=== PATIENT | female | born 1955 | race Caucasian/White ===

== ENCOUNTER 2021-06-24 09:18 | Emergency (ER) | payer OTHER ==
[~2021-06-24] VITALS: Ht 167.6 cm; Wt 89.8 kg
[2021-06-24 09:26] VITALS: BP 129/77
--- NOTE | 2021-06-24 09:31 | NUR ---
PT AMBULATED TO BED 04 ASSISTED BY WALKER.
--- NOTE | 2021-06-24 09:31 | NUR ---
PT AMBULATED TO BED, WITH FORWARD WHEEL WALKER. STEADY GAIT
--- NOTE | 2021-06-24 09:35 | NUR ---
Dr. Razo at bedside evaluating patient.
--- NOTE | 2021-06-24 09:40 | NUR ---
66 y/o female, pt states fell 2 weeks ago and is c/o left sided head paid, with pressure behind left eye. aa&ox4, ambulates with walker with even and steady gait. denies loc, syncope, n/v/d. equal strengths in bilateral upper and lower extremities. pt states 8/10 pressure pain. pmh: chronic body pain, hepatitis c nka
[2021-06-24] MEDS ORDERED: DIPH25SG5 PO (09:53)
[2021-06-24 10:13] VITALS: BP 129/77
--- NOTE | 2021-06-24 10:14 | NUR ---
Patient discharged with v/s stable. Written and verbal after care instructions given. Patient alert, oriented and verbalized understanding of instructions. Ambulatory with steady gait. All questions addressed prior to discharge. ID band removed. Patient advised to follow up with PMD. Rx of Benadryl given. Opportunity to ask questions provided and answered.
== END 2021-06-24 10:14 | disposition home or self-care (01) ==
LOC: MED 09:18
DX: S09.90XA Unspecified injury of head, initial encounter (principal); J30.2 Other seasonal allergic rhinitis; K12.1 Other forms of stomatitis; F17.210 Nicotine dependence, cigarettes, uncomplicated; Z86.19 Personal history of other infectious and parasitic diseases; Z71.6 Tobacco abuse counseling; W19.XXXA Unspecified fall, initial encounter; Y93.89 Activity, other specified; Y92.89 Other specified places as the place of occurrence of the external cause; Y99.8 Other external cause status
CPT/HCPCS: 99282

== ENCOUNTER 2021-08-25 10:59 | Emergency (ER) | payer OTHER ==
[~2021-08-25] VITALS: Ht 167.6 cm; Wt 77.1 kg
[~2021-08-25 10:59] MED LIST: DIPH25SG5 PO
[2021-08-25 11:12] VITALS: BP 117/69
--- NOTE | 2021-08-25 11:20 | NUR ---
PT W/C ASSISTED TO BED 01.
--- NOTE | 2021-08-25 11:38 | NUR ---
PT LAC IRRIGATED AND CLEANED WITH WARM WATER.
--- NOTE | 2021-08-25 11:44 | NUR ---
66 Y/O FEMALE C/O LACERATION WOUND TO BACK OF HEAD S/P FALL X 1 HOUR AGO. PT STATES 12/08 HEADACHE DESCRIBES ACHING NON-RADIATING. DENIES LOC. NO ACTIVE BLEEDING AT THIS TIME. DENIES FEVER/CHILLS. DENIES N/V/D. DENIES PMH NKA
--- NOTE | 2021-08-25 12:52 | NUR ---
PT BACK FROM CT
[2021-08-25] MEDS ORDERED: IBUP-2213 PO (13:25)
[2021-08-25] MEDS ORDERED: KETOROLAC 60 MG/2 ML VIAL IM ONE (13:25)
[2021-08-25 13:46] VITALS: BP 117/70
--- NOTE | 2021-08-25 13:47 | NUR ---
Patient discharged with v/s stable. Written and verbal after care instructions given FOR HEAD INJURY AND ABRASION and explained. Patient alert, oriented and verbalized understanding of instructions. Ambulatory with steady gait. All questions addressed prior to discharge. ID band removed. Patient advised to follow up with PMD. Rx of IBUPROFEN given. Patient educated on indication of medication including possible reaction and side effects. Opportunity to ask questions provided and answered.
== END 2021-08-25 13:47 | disposition home or self-care (01) ==
LOC: MED 10:59
DX: S00.01XA Abrasion of scalp, initial encounter (principal); Z90.49 Acquired absence of other specified parts of digestive tract; Z98.890 Other specified postprocedural states; Z79.1 Long term (current) use of non-steroidal anti-inflammatories (NSAID); Z79.899 Other long term (current) drug therapy; W01.198A Fall on same level from slipping, tripping and stumbling with subsequent striking against other object, initial encounter; Y92.89 Other specified places as the place of occurrence of the external cause; Y93.89 Activity, other specified; Y99.8 Other external cause status
CPT/HCPCS: 70450; 96372; 99284; J1885

== ENCOUNTER 2021-09-17 16:56 | Emergency (ER) | payer OTHER ==
[~2021-09-17] VITALS: Ht 167.6 cm; Wt 68.5 kg
[~2021-09-17 16:56] MED LIST changes: +IBUP-2213 PO
[2021-09-17 17:46] VITALS: BP 155/80
--- NOTE | 2021-09-17 19:36 | NUR ---
PT TAKEN TO RADIOLOGY
[2021-09-17 20:23] LABS: BASOPHILS % (AUTO) 0.5 % (0.0-2.0); EOSINOPHILS # (AUTO) 0.1 K/uL (0-0.4); EOSINOPHILS % (AUTO) 1.2 % (0.0-4.0); HEMATOCRIT 41.8 % (36-48); HEMOGLOBIN 13.9 g/dL (12.0-16.0); LYMPHOCYTES # (AUTO) 1.5 K/uL (2.5-16.5); LYMPHOCYTES % (AUTO) 23.6 % (20.5-51.1); MEAN CORPUSCULAR HEMOGLOBIN 27 pg (27-31); MEAN CORPUSCULAR HGB CONC 33 g/dL (33-37); MEAN CORPUSCULAR VOLUME 80.1 fL (80-94); MONOCYTES # (AUTO) 0.5 K/uL (0.8-1.0); MONOCYTES % (AUTO) 8.5 % (1.7-9.3); NEUTROPHILS # (AUTO) 4.1 K/uL (1.8-7.7); NEUTROPHILS % (AUTO) 66.2 % (42.2-75.2); PLATELET COUNT (AUTO) 161 K/uL (140-450); RED BLOOD CELL COUNT(AUTO) 5.22 MIL/uL (4.20-5.40); RED CELL DISTRIBUTION WIDTH 12.2 % (11.6-13.7); WHITE BLOOD COUNT (AUTO) 6.3 K/uL (4.8-10.8)
[2021-09-17] MEDS ORDERED: OMEP20EC11 PO (20:39)
--- NOTE | 2021-09-17 20:39 | NUR ---
PT TAKEN TO BED 2
--- NOTE | 2021-09-17 21:00 | NUR ---
66 Y/O C/O OF BURNING EPIGASTRIC PAIN X2 WEEKS DENIES ANY N/V/D. SKININTACT, A&OX4, NO SOB NOR CHEST PAIN, WALKS WITH A WALKER, AND DENIES PAIN. NKA PMH: OSTEOARTHRITIS, HYPOTHYROIDISM, HEP C, SEIZURES RX: GABAPENTIN
[2021-09-17 21:14] LABS: ALBUMIN 4.8 g/dL (3.4-5.0); ANION GAP 14.2 (8-16); ASPARTATE AMINOTRANSFERASE 24 U/L (15-37); CARBON DIOXIDE 29.3 mmol/L (21-32); CHLORIDE 96 mmol/L (98-107); CREATININE 0.7 mg/dL (0.6-1.3); GFR ARICAN-AMERICAN 107 mL/min (>90); GLUCOSE 82 mg/dL (74-106); LIPASE 121 U/L (73-393); POTASSIUM 4.5 mmol/L (3.5-5.1); SODIUM SERUM 135 mmol/L (136-145); TOTAL BILIRUBIN 0.5 mg/dL (0.0-1.0); UREA NITROGEN, BLOOD 15 mg/dL (7-18)
[2021-09-17 21:50] VITALS: BP 155/80
--- NOTE | 2021-09-17 22:01 | NUR ---
Patient discharged with v/s stable. Written and verbal after care instructions given and explained. Patient alert, oriented and verbalized understanding of instructions. Ambulatory with steady gait. All questions addressed prior to discharge. ID band removed. Patient advised to follow up with PMD. Rx of PRILOSEC given. Patient educated on indication of medication including possible reaction and side effects. Opportunity to ask questions provided and answered.
== END 2021-09-17 22:01 | disposition home or self-care (01) ==
LOC: MED 16:56
DX: R07.89 Other chest pain (principal); R03.0 Elevated blood-pressure reading, without diagnosis of hypertension; M19.90 Unspecified osteoarthritis, unspecified site; F17.210 Nicotine dependence, cigarettes, uncomplicated; Z79.899 Other long term (current) drug therapy; Z79.1 Long term (current) use of non-steroidal anti-inflammatories (NSAID)
CPT/HCPCS: 36415; 71045; 80053; 83690; 84484; 85025; 93005; 99285

== ENCOUNTER 2022-04-04 12:41 | Emergency (ER) | payer OTHER ==
[~2022-04-04] VITALS: Ht 154.9 cm; Wt 63.5 kg
[~2022-04-04 12:41] MED LIST changes: +OMEP20EC11 PO
[2022-04-04 12:47] VITALS: BP 125/66
--- NOTE | 2022-04-04 13:01 | NUR ---
NAVEED Benavidez evaluating pt.
[2022-04-04] MEDS ORDERED: PIPERACILLIN/TAZOBACTAM 3.375 GM in DEXTROSE 5% 50 ML IV ONE (13:25)
--- NOTE | 2022-04-04 13:27 | NUR ---
PT AMBULATED TO BED 6 WITH WALKER
--- NOTE | 2022-04-04 13:30 | NUR ---
66/f walked in c/o left leg wound and pain onset 1.5 months. pt reports wound onset after falling and scraping on a rug. pt states taking amoxicillin px with no relief. aao4, ambulatory, vitals stable. pmh: scoliosis
[2022-04-04 14:08] LABS: BASOPHILS % (AUTO) 0.5 % (0.0-2.0); EOSINOPHILS # (AUTO) 0.1 K/uL (0-0.4); EOSINOPHILS % (AUTO) 1.5 % (0.0-4.0); HEMATOCRIT 36.6 % (36-48); HEMOGLOBIN 12.4 g/dL (12.0-16.0); LYMPHOCYTES # (AUTO) 1.2 K/uL (2.5-16.5); LYMPHOCYTES % (AUTO) 16.6 % (20.5-51.1); MEAN CORPUSCULAR HEMOGLOBIN 28 pg (27-31); MEAN CORPUSCULAR HGB CONC 34 g/dL (33-37); MEAN CORPUSCULAR VOLUME 82.5 fL (80-94); MONOCYTES # (AUTO) 0.5 K/uL (0.8-1.0); MONOCYTES % (AUTO) 7.5 % (1.7-9.3); NEUTROPHILS # (AUTO) 5.3 K/uL (1.8-7.7); NEUTROPHILS % (AUTO) 73.9 % (42.2-75.2); PLATELET COUNT (AUTO) 165 K/uL (140-450); RED BLOOD CELL COUNT(AUTO) 4.43 MIL/uL (4.20-5.40); RED CELL DISTRIBUTION WIDTH 12.8 % (11.6-13.7); WHITE BLOOD COUNT (AUTO) 7.1 K/uL (4.8-10.8)
--- NOTE | 2022-04-04 14:14 | NUR ---
X-Ray at bedside.
[2022-04-04] MEDS ORDERED: PIPERACILLIN/TAZOBACTAM 3.375 GM VIAL IV ONE (14:29)
--- NOTE | 2022-04-04 14:31 | NUR ---
Ultrasound at bedside.
[2022-04-04 14:48] LABS: ALBUMIN 4.3 g/dL (3.4-5.0); ASPARTATE AMINOTRANSFERASE 34 U/L (15-37); CARBON DIOXIDE 31.9 mmol/L (21-32); CHLORIDE 101 mmol/L (98-107); CREATININE 0.7 mg/dL (0.6-1.3); GFR ARICAN-AMERICAN 107 mL/min (>90); GLUCOSE 79 mg/dL (74-106); POTASSIUM 3.9 mmol/L (3.5-5.1); SODIUM SERUM 140 mmol/L (136-145); UREA NITROGEN, BLOOD 15 mg/dL (7-18)
[2022-04-04 15:37] LABS: TOTAL BILIRUBIN 0.3 mg/dL (0.0-1.0)
--- NOTE | 2022-04-04 15:54 | NUR ---
66 y/o female bib self with c/o open area to left porter x 1 month. Patient is noted with redness, heat and discoloration to left porter. Patient is also noted with an open area to right porter. Per patient, the open area on left porter is also draining yellow liquid. Per patient, she has been cleaning the wound with hydrogen peroxide. Medical History: Scoliosis, Drug Abuse (clean) NKDA
--- NOTE | 2022-04-04 16:43 | NUR ---
Patient does not wish to proceed with medical care recommended by NAVEED MCMAHON. Patient given information related to possible complications, up to and including , which could occur as a result of leaving hospital at this time. Patient verbalizes understanding of risks involved leaving against medical advice. Patient has signed AMA form. NAVEED MCMAHON AT BEDSIDE, WITNESSED PT SIGNATURE
--- NOTE | 2022-04-04 16:45 | NUR ---
IV removed, catheter intact and site benign. Applied folded 4x4 gauze and tape to stop bleeding.
[2022-04-04] MEDS ORDERED: SULF-59 PO (16:46)
[2022-04-04] MEDS ORDERED: CEPH-588 PO (16:46)
[2022-04-04 17:52] LABS: BARBITURATE, URINE NEGATIVE ng/ml (NEG <=200); BENZODIAZEPINE, URINE NEGATIVE ng/mL (NEG <=200); CANNABINOID, URINE NEGATIVE ng/mL (NEG <=50); COCAINE, URINE NEGATIVE ng/mL (NEG <=300); OPIATE, URINE POSITIVE ng/mL (NEG <=2000); PHENCYCLIDINE SCREEN,URINE NEGATIVE ng/mL (NEG <=25)
== END 2022-04-04 16:43 | disposition left against medical advice (07) ==
LOC: MED 12:41
DX: L03.116 Cellulitis of left lower limb (principal); Z20.822 Contact with and (suspected) exposure to COVID-19
CPT/HCPCS: 36415; 73590; 80053; 80305; 83605; 84484; 85025; 85651; 86140; 87040; 87426; 93005; 93971; 96365; 99285; J2543; Q0092

== ENCOUNTER 2022-07-26 15:18 | Inpatient (IN) | payer OTHER ==
[~2022-07-26] VITALS: Ht 167.6 cm; Wt 65.8 kg
[~2022-07-26 15:18] MED LIST changes: +CEPH-588 PO; +SULF-59 PO
--- NOTE | 2022-07-26 15:20 | NUR ---
PATIENT BIBA TO BED 4.
[2022-07-26 15:26] VITALS: BP 137/88
--- NOTE | 2022-07-26 15:54 | NUR ---
Patient arrived to ED 4 for c/o circulation problem bilateral legs. Patient said 10/10 pain on bilateral legs. Burning hurting biting pain. Patient PMH hepatitis C, cancer. Bilateral legs noted to have some dicharge that happened a few months ago. at bedside to MSE patient. Will continue to monitor.
[2022-07-26] MEDS ORDERED: cefTRIAXone 1,000 MG in DEXT 5% MINI-BAG PLUS 50 ML IV ONE (16:35)
[2022-07-26] MEDS ORDERED: MORPHINE SULFATE 4 MG/ML SYR IVP ONE (16:35)
[2022-07-26] MEDS ORDERED: ONDANSETRON 4 MG/2 ML VIAL IVP ONE (16:35)
[2022-07-26] MEDS ORDERED: NACL 0.9% 1,000 ML IV SCH (16:35)
[2022-07-26] MEDS ORDERED: cefTRIAXone 1,000 MG VIAL ONE (16:45)
[2022-07-26 16:47] LABS: BASOPHILS % (AUTO) 0.3 % (0.0-2.0); EOSINOPHILS # (AUTO) 0.1 K/uL (0-0.4); EOSINOPHILS % (AUTO) 0.6 % (0.0-4.0); HEMATOCRIT 35.5 % (36-48); HEMOGLOBIN 11.8 g/dL (12.0-16.0); LYMPHOCYTES # (AUTO) 1.4 K/uL (2.5-16.5); LYMPHOCYTES % (AUTO) 12.8 % (20.5-51.1); MEAN CORPUSCULAR HEMOGLOBIN 26 pg (27-31); MEAN CORPUSCULAR HGB CONC 33 g/dL (33-37); MEAN CORPUSCULAR VOLUME 76.5 fL (80-94); MONOCYTES % (AUTO) 9.3 % (1.7-9.3); NEUTROPHILS # (AUTO) 8.1 K/uL (1.8-7.7); PLATELET COUNT (AUTO) 420 K/uL (140-450); RED BLOOD CELL COUNT(AUTO) 4.65 MIL/uL (4.20-5.40); RED CELL DISTRIBUTION WIDTH 14.5 % (11.6-13.7); WHITE BLOOD COUNT (AUTO) 10.6 K/uL (4.8-10.8)
[2022-07-26 17:13] LABS: ALBUMIN 2.3 g/dL (3.4-5.0); ANION GAP 10.8 (8-16); ASPARTATE AMINOTRANSFERASE 42 U/L (15-37); CARBON DIOXIDE 29.9 mmol/L (21-32); CHLORIDE 96 mmol/L (98-107); CREATININE 0.5 mg/dL (0.6-1.3); GFR ARICAN-AMERICAN 158 mL/min (>90); GLUCOSE 94 mg/dL (74-106); POTASSIUM 3.7 mmol/L (3.5-5.1); SODIUM SERUM 133 mmol/L (136-145); TOTAL BILIRUBIN 0.4 mg/dL (0.0-1.0); UREA NITROGEN, BLOOD 10 mg/dL (7-18)
[2022-07-26] MEDS ORDERED: ONDANSETRON 4 MG/2 ML VIAL IVP PRN (18:40)
[2022-07-26] MEDS ORDERED: POTASSIUM CHLORIDE 10 MEQ TABER PO PRN (18:40)
[2022-07-26] MEDS ORDERED: MAG SULF 2000 MG/WATER PREMIX 50 ML IV PRN (18:40)
[2022-07-26] MEDS ORDERED: ZOLPIDEM 10 MG TAB PO PRN (18:40)
[2022-07-26] MEDS ORDERED: DOCUSATE SODIUM 100 MG GELCAP PO PRN (18:40)
[2022-07-26] MEDS ORDERED: ACETAMINOPHEN 325 MG TAB PO PRN (18:40)
[2022-07-26] MEDS: LORazepam 2 MG/ML VIAL IVP PRN (18:59)
--- NOTE | 2022-07-26 19:33 | NUR ---
REPORT FR BRITTANY DUENAS
--- NOTE | 2022-07-26 19:34 | NUR ---
Report given to shift supervisor melting RN for continuity of care. Patient in stable condition.
--- NOTE | 2022-07-26 20:03 | NUR ---
REPORT FR BRITTANY, PT C/O PAIN OHRR WOUNDS ON BOTH LOWER EXTREMITIES
[2022-07-26] MEDS: MORPHINE SULFATE 2 MG/ML SYR IVP PRN (20:42)
--- NOTE | 2022-07-26 20:44 | NUR ---
C/O WOUND TO BLE ,PAIN MEDS GIVEN ORDERED
--- NOTE | 2022-07-26 20:57 | NUR ---
NON ADHERANT DRESSING APPLIED TO WOUND ON BOTH LE
--- NOTE | 2022-07-26 22:01 | NUR ---
PLACED DRESSING ON LOWER LEGS.
--- NOTE | 2022-07-26 22:08 | NUR ---
PAIN MEDS GIVEN EFFECTIVE, REPORT GIVEN LESIA CALIX RN
--- NOTE | 2022-07-26 22:27 | NUR ---
Patient will be admitted to care of [facility]. Admited to . Will go to [id number]. Belongings list completed. Report toYOGI DUENAS .
--- NOTE | 2022-07-26 22:40 | NUR ---
ADMITTED PATIENT FROM ER VIA [facility] AWAKE ALERT ORIENTED X4. CC: NON HEALING WOUND TO BILATERAL LOWER EXTREMITIES AND LEG PAIN. NO SOB NOTED. NO COMPLAINTS OF PAIN AT THIS TIME. IV ACCESS TO THE RIGHT HAND 20 GAUGE SALINE LOCK. ALL SAFETY PRECAUTIONS ARE IN PLACE. CALL LIGHT WITHIN REACH. MRSA SCREENING DONE.
[2022-07-26 23:00] VITALS: BP 124/68
[2022-07-27 04:00] VITALS: BP 130/69
[2022-07-27] MEDS: MORPHINE SULFATE 2 MG/ML SYR IVP PRN ×2 (04:49→10:42)
--- NOTE | 2022-07-27 07:17 | NUR ---
GAVE REPORT TO DAY NURSE FOR CONTINUITY OF CARE.
--- NOTE | 2022-07-27 07:18 | NUR ---
RECEIVED PATIENT FROM PM NURSE FOR CONTINUATION OF CARE. PATIENT SEEN ON BED ASLEEP WITH NORMAL RISE AND FALL OF CHEST. PATIENT CARE PLAN REVIEWED AND PATIENT CARE RESUMED.
[2022-07-27 07:24] LABS: BASOPHILS % (AUTO) 0.3 % (0.0-2.0); EOSINOPHILS # (AUTO) 0.1 K/uL (0-0.4); EOSINOPHILS % (AUTO) 0.5 % (0.0-4.0); HEMATOCRIT 31.9 % (36-48); HEMOGLOBIN 10.6 g/dL (12.0-16.0); LYMPHOCYTES # (AUTO) 0.9 K/uL (2.5-16.5); LYMPHOCYTES % (AUTO) 8.2 % (20.5-51.1); MEAN CORPUSCULAR HEMOGLOBIN 25 pg (27-31); MEAN CORPUSCULAR HGB CONC 33 g/dL (33-37); MEAN CORPUSCULAR VOLUME 75.6 fL (80-94); MONOCYTES # (AUTO) 1.1 K/uL (0.8-1.0); NEUTROPHILS # (AUTO) 8.6 K/uL (1.8-7.7); PLATELET COUNT (AUTO) 315 K/uL (140-450); RED BLOOD CELL COUNT(AUTO) 4.21 MIL/uL (4.20-5.40); RED CELL DISTRIBUTION WIDTH 14.4 % (11.6-13.7); WHITE BLOOD COUNT (AUTO) 10.6 K/uL (4.8-10.8)
[2022-07-27 07:43] LABS: CREATININE 0.5 mg/dL (0.6-1.3); POTASSIUM 3.8 mmol/L (3.5-5.1)
[2022-07-27 07:48] LABS: ANION GAP 10.1 (8-16); CARBON DIOXIDE 28.7 mmol/L (21-32)
[2022-07-27] MEDS ORDERED: METHADONE 10 MG TAB PO SCH (11:15)
[2022-07-27] MEDS ORDERED: IBUPROFEN 600 MG TAB PO PRN (11:15)
[2022-07-27] MEDS ORDERED: VANCOMYCIN PER PHARMACY MC PRN (11:25)
[2022-07-27] MEDS ORDERED: VANCOMYCIN 750 MG in DEXTROSE 5% 250 ML IV SCH (12:00)
[2022-07-27] MEDS: CEFEPIME 2,000 MG in DEXTROSE 5% 100 ML IV SCH ×2 (13:00→21:43)
[2022-07-27] MEDS ORDERED: METHADONE HCL ORAL SOLN 10 MG/ML SOLN PO SCH (13:00)
--- NOTE | 2022-07-27 18:00 | NUR ---
WOUND DRESSING PERFORMED ON PATIENT
--- NOTE | 2022-07-27 19:20 | NUR ---
GAVE REPORT TO PM NURSE FOR CONTINUATION OF CARE
[2022-07-27 20:00] VITALS: BP 106/61
[2022-07-27] MEDS ORDERED: DEXTROSE 5% IV SCH (20:00)
[2022-07-27] MEDS ORDERED: VANCOMYCIN IV SCH (20:00)
--- NOTE | 2022-07-27 20:00 | NUR ---
PATIENT IV SITE LEAKING. INSERTED A NEW IV LINE TO RIGHT FOREARM WITH GOOD RETURN OF BLOOD. TOLERATED WELL.
[2022-07-27] MEDS: QUEtiapine FUMARATE 100 MG TAB PO SCH (21:01)
--- NOTE | 2022-07-27 21:43 | NUR ---
MAXIPIME IVPB ADMINISTERED ORDERED.
[2022-07-28 04:00] VITALS: BP 108/62
[2022-07-28 07:02] LABS: BASOPHILS % (AUTO) 0.3 % (0.0-2.0); EOSINOPHILS # (AUTO) 0.1 K/uL (0-0.4); EOSINOPHILS % (AUTO) 1.7 % (0.0-4.0); HEMATOCRIT 29.8 % (36-48); HEMOGLOBIN 9.9 g/dL (12.0-16.0); LYMPHOCYTES % (AUTO) 16.6 % (20.5-51.1); MEAN CORPUSCULAR HEMOGLOBIN 25 pg (27-31); MEAN CORPUSCULAR HGB CONC 33 g/dL (33-37); MEAN CORPUSCULAR VOLUME 76.4 fL (80-94); MONOCYTES # (AUTO) 0.8 K/uL (0.8-1.0); NEUTROPHILS # (AUTO) 4.3 K/uL (1.8-7.7); NEUTROPHILS % (AUTO) 69.4 % (42.2-75.2); PLATELET COUNT (AUTO) 256 K/uL (140-450); RED BLOOD CELL COUNT(AUTO) 3.91 MIL/uL (4.20-5.40); RED CELL DISTRIBUTION WIDTH 14.7 % (11.6-13.7); WHITE BLOOD COUNT (AUTO) 6.3 K/uL (4.8-10.8)
[2022-07-28 07:10] LABS: ANION GAP 8.5 (8-16); CREATININE 0.6 mg/dL (0.6-1.3); POTASSIUM 3.5 mmol/L (3.5-5.1)
[2022-07-28] MEDS: LEVOTHYROXINE 0.088 MG TAB PO SCH (07:10)
--- NOTE | 2022-07-28 07:22 | NUR ---
RECEIVED REPORT FROM PM NURSE FOR CONTINUATION OF CARE. PATIENT SEEN ON BED ASLEEP WITH NORMAL RISE AND FALL OF CHEST.
--- NOTE | 2022-07-28 07:31 | NUR ---
GAVE REPORT TO AM NURSE FOR CONTINUITY OF CARE.
--- NOTE | 2022-07-28 08:02 | NUR ---
PATIENT HAS BEEN SCREENED AND CATEGORIZED HIGH NUTRITION RISK. PATIENT WILL BE SEEN WITHIN 1-2 DAYS OF ADMISSION. 07/26/22-07/28/[address] REFERRAL RECEIVED FOR WOUNDS/PRESSURE INJURY
[2022-07-28] MEDS ORDERED: NON-FORMULARY ITEM (Omeprazole* (Prilosec*) 20 MG) PO SCH (09:00)
[2022-07-28] MEDS: CEFEPIME 2,000 MG in DEXTROSE 5% 100 ML IV SCH ×2 (09:58→20:16)
[2022-07-28] MEDS: PANTOPRAZOLE 40 MG TABEC PO SCH (09:59)
[2022-07-28] MEDS: QUEtiapine FUMARATE 100 MG TAB PO SCH ×2 (09:59→20:16)
[2022-07-28] MEDS: ESCITALOPRAM 20 MG TAB PO SCH (10:00)
[2022-07-28] MEDS: ASPIRIN 81 MG TAB.CHEW PO SCH (10:01)
[2022-07-28] MEDS ORDERED: METHADONE HCL ORAL SOLN 10 MG/ML SOLN PO SCH (13:00)
[2022-07-28] MEDS: VANCOMYCIN HCL 750 MG in DEXTROSE 5% 250 ML IV SCH (14:00)
[2022-07-28] MEDS: MORPHINE SULFATE 2 MG/ML SYR IVP PRN (17:50)
--- NOTE | 2022-07-28 17:50 | NUR ---
ASSESSED WOUND DRESSING. DRESSING STILL INTACT AND CLEAN OF PUS. PATIENT COMPLAINS OF PAIN /. MORPHINE GIVEN AND WILL EVALUATE AFTER 1 HOUR.
--- NOTE | 2022-07-28 18:41 | NUR ---
07/28/22 RD INITIAL ASSESSMENT COMPLETED. PLEASE REFER TO NUTRITION ASSESSMENT UNDER CARE ACTIVITY FOR ESTIMATED NUTRITIONAL NEEDS. 1. CONTINUE REGULAR DIET TOLERATED 2. RECOMMEND ENSURE & MARY BID TO PROMOTE WOUND HEALING PER RD PROTOCOL 3. RD TO FOLLOW-UP 3-5 DAYS, MODERATE RISK MARIAA CRONIN RD
--- NOTE | 2022-07-28 18:50 | NUR ---
PATIENT FREE OF PAIN. SEEN ON BED EATING DINNER. PATIENT REPOSITIONED. VERBALIZED CLOSING REMARKS WITH PATIENT.
--- NOTE | 2022-07-28 19:10 | NUR ---
NURSE REPORT REPORT OBTAINED FROM DAY SHIFT NURSE SORAYA AND HIS NURSE ASSUME CARE. VSS. AFEB. NO C/O PAIN OR DISCOMFORT. ISABEL WOODS RN
[2022-07-28 20:00] VITALS: BP 108/67
--- NOTE | 2022-07-29 | NUR ---
NURSE NOTES ASLEEP WITHOUT ANY SXS OF PAIN OR DISTRESS. ISABEL WOODS RN
[2022-07-29 04:00] VITALS: BP 117/70
--- NOTE | 2022-07-29 04:00 | NUR ---
NURSE NOTES VSS. AFEB. NO C/O PAIN OR DISCOMFORT.
[2022-07-29] MEDS: LEVOTHYROXINE 0.088 MG TAB PO SCH (06:31)
--- NOTE | 2022-07-29 07:29 | NUR ---
NURSE REPORT REPORT GIVEN TO DAYSHIFT NURSE KIM TO ASSUME CARE OF PATIENT. ALL QUESTIONS ANSWERED. ISABEL WOODS RN
[2022-07-29 07:46] LABS: BASOPHILS % (AUTO) 0.4 % (0.0-2.0); EOSINOPHILS # (AUTO) 0.1 K/uL (0-0.4); EOSINOPHILS % (AUTO) 1.2 % (0.0-4.0); HEMATOCRIT 30.2 % (36-48); LYMPHOCYTES # (AUTO) 0.9 K/uL (2.5-16.5); LYMPHOCYTES % (AUTO) 15.7 % (20.5-51.1); MEAN CORPUSCULAR HEMOGLOBIN 25 pg (27-31); MEAN CORPUSCULAR HGB CONC 33 g/dL (33-37); MEAN CORPUSCULAR VOLUME 76.2 fL (80-94); MONOCYTES # (AUTO) 0.6 K/uL (0.8-1.0); MONOCYTES % (AUTO) 9.8 % (1.7-9.3); NEUTROPHILS # (AUTO) 4.2 K/uL (1.8-7.7); NEUTROPHILS % (AUTO) 72.9 % (42.2-75.2); PLATELET COUNT (AUTO) 262 K/uL (140-450); RED BLOOD CELL COUNT(AUTO) 3.96 MIL/uL (4.20-5.40); RED CELL DISTRIBUTION WIDTH 14.6 % (11.6-13.7); WHITE BLOOD COUNT (AUTO) 5.8 K/uL (4.8-10.8)
[2022-07-29 07:56] LABS: ANION GAP 9.3 (8-16); CARBON DIOXIDE 30.9 mmol/L (21-32); CREATININE 0.7 mg/dL (0.6-1.3); POTASSIUM 4.2 mmol/L (3.5-5.1)
[2022-07-29 08:00] VITALS: BP 132/68
[2022-07-29] MEDS: ASPIRIN 81 MG TAB.CHEW PO SCH (08:19)
[2022-07-29] MEDS: PANTOPRAZOLE 40 MG TABEC PO SCH (08:19)
[2022-07-29] MEDS: ESCITALOPRAM 20 MG TAB PO SCH (08:20)
[2022-07-29] MEDS: QUEtiapine FUMARATE 100 MG TAB PO SCH (08:20)
[2022-07-29] MEDS: VANCOMYCIN HCL 750 MG in DEXTROSE 5% 250 ML IV SCH (08:21)
[2022-07-29] MEDS ORDERED: QUET300T1 PO (09:02)
[2022-07-29] MEDS ORDERED: LEVO0.083 PO (09:02)
[2022-07-29] MEDS ORDERED: CEFEPIME IV (09:02)
[2022-07-29] MEDS ORDERED: LAM200 PO (09:02)
[2022-07-29] MEDS ORDERED: IV Vancomycin IV (09:04)
[2022-07-29] MEDS: MORPHINE SULFATE 2 MG/ML SYR IVP PRN ×2 (10:06→17:45)
--- NOTE | 2022-07-29 10:45 | NUR ---
WOUND CARE NOTE: PT. ADMITTED WITH BLE CHRONIC ULCERS. PT IS AAX4, PER PT. LAST SEEN FOR LEGS TX WAS AT [facility].PER PT. " THEY DID NOTHING". PER PT. SHE IS VERY SENSITIVE FOR PAIN. SPOKE TO PRIMARY HENRIQUE MARCUS AND MORPHINE WAS GIVEN PER ORDER. BLE OLD DRESSING SOAKED WITH 2 BOTTLES OF IRRIGATION NS. WHEN REMOVING OLD SOILING DRESSING, PT YELLIN OUT LOUD, YET ONLY OUTER LAYER DRESSING WAS ROLLED TO HALF WAY AND ABD PADS EXPOSED. ANOTHER BOTTLE OF NS, SOAKED THRU TO ABD PAD, WAIT FOR ANOTHER 10 MINUTES AND TO REMOVE LLE ABD PAD DRESSING,ANTERIOR WOUND SHOWN WITH SLOUGH TISSUE, FOUL ODOR, AT THIS TIME PT. REQUEST TO STOP AND DOES NOT WANT WOUND CARE NURSE TO CONTINUE. WOUND CARE NURSE STOP ALL CARE AT THIS TIME. WITH PT. PERMISSION LLE WOUND PHOTO OBTAINED SENT TO DR. TILLMAN AND REQUEST SURGEON CONSULT FOR DEBRIDEMENT. PT. AGREES WITH PLAN, HOWEVER, SHE WANTS IT RIGHT AWAY. EXPLAIN TO PT. THAT NEED TO WAIT FOR SURGEON TO COME TO VISIT AND WHILE WAITING THE WOUND DRESSING NEED TO BE CHANGED. PT. REFUSES WOUND CARE NURSE TO TOUCH HER AGAIN. IN THE MEANWHILE X-RAY STAFF COMING IN AND PT. ALLOW X-RAY TO BE TAKEN. BLE COVER WITH ABSORBANT PAD AT THIS TIME AND POC DISCUSSED WITH PRIMARY HENRIQUE MARCUS WITH ALL ABOVE INFORMATION DISCUSSED AND REQUEST PAIN MANAGEMENT AND TAKE OVER WOUND CARE TO BLE. ANGELINE VERBALIZES UNDERSTANDING. RECOMMENDATIONS: -SURGEON CONSULT BLE FOR DEBRIDEMENT -BETTER PAIN MANAGEMENT FOR WOUND DRESSING CHANGE -BLE SOAK THRU OLD DRESSING BEFORE REMOVING IT. CLEANSE BLE WITH NS, PAT DRY, APPLY SILVASORB GEL WITH OIL EMULSION DRESSING, COVER WITH ABD PADS, WRAP WITH KERLIX ROLLS AND SECURED WITH TAPE DAILY AND PRN
[2022-07-29] MEDS: CEFEPIME 2,000 MG in DEXTROSE 5% 100 ML IV SCH (10:58)
--- NOTE | 2022-07-29 11:02 | NUR ---
SPOKE TO DR. TILLMAN IN PERSON, PER DR. TILLMAN AWARE OF REQUEST SURGEON. PER DR. TILLMAN , NO DEBRIDEMENT HERE. PT. WILL BE DISCHARGE TO SNF AND HER INSURANCE CAN FOLLOW FROM THERE.. CHARGE NURSE BIA NOTIFIED
[2022-07-29] MEDS: LORazepam 2 MG/ML VIAL IVP PRN (12:40)
--- NOTE | 2022-07-29 12:50 | NUR ---
UPON ARRIVAL TO PT. ROOM. PT HAS REMOVES SOME OF DRESSING. POC DISCUSSED WITH PT. NO ORDER FOR SURGEON CONSULT, DOCTOR LAYNE PLACED ORDER FOR SNF DISCHARGED. AT THIS TIME PT. ALLOW WOUND CARE NURSE TO PROVIDE WOUND CARE. POC DISCUSSED WITH PRIMARY RN FOR PAIN MEDICATION. PER ANGELINE, NO PAIN MED DUE AND WILL OFFER ATIVAN. LLE 27X1X0.3CM RLE 95B50H8.3CM AREA IN CIRCUMFERENCE, BLE WOUNDS ANTERIOR TO POSTERIOR FROM KNEE DOWN TO CHON-ANKLE IRREGULAR SHAPE WOUNDS AREA WITH MULTIPLE ULCERS,50% SLOUGH TISSUE, 50% PINK TISSUE, FOUL ODOR, SMALL AMOUNT BLEEDING, CHON-WOUND SKIN MOIST, PAIN 7/10. WOUNDS CLEANSE WITH NS, PAT DRY, APPLY SILVASORB GEL WITH OIL EMULSION DRESSING,COVER WITH ABD PAD, WRAP WITH KERLIX ROLLS AND SECURED WITH TAPE DAILY AND PRN IF SOILING. Addendum: 07/29/22 at 1419 by Trevon Foley RN (Grace) EDIT: LLE 83Q17B8.3CM RLE [id number] AREA IN CIRCUMFERENCE
--- NOTE | 2022-07-29 12:51 | NUR ---
RECEIVED ORDER FOR PATIENT TO GO TO SNF FOR IV ABX AND PT. [place] [facility] LAURIE [facility]OR[facility]. PATIENT WAS ACCEPTED AT [facility] LOCATED AT [address] [id number]. PATIENT WILL BE GOING TO ROOM 11B UNDER DR ARANA. TRANSPORTATION SET UP WITH [facility] WITH A 1700 CHIEF RADIOLOGY TIME NURSE ANGELINE AND PATIENT AWARE OF THE ABOVE INFORMATION
[2022-07-29] MEDS ORDERED: METHADONE HCL ORAL SOLN 10 MG/ML SOLN PO SCH (13:00)
--- NOTE | 2022-07-29 13:12 | NUR ---
DC PLANNING ASSESSMENT COMPLETE PLEASE REFER TO ASSESSMENT FOR ADDITIONAL DETAILS PT CURRENTLY HAS A DC ORDER FOR SNF PLACEMENT FOR IV ANTIBIOTIC AND WOUND CARE. PT REPORTS SHE IS AGREEABLE TO SNF PLACEMENT. DCP/CM WORKING ON IDENTIFYING SNF PLACEMENT. Addendum: 07/29/22 at 1313 by Leatha CADENA Amended: Links added.
[2022-07-29 16:00] VITALS: BP 135/66
== END 2022-07-29 17:50 | DRG 871 ==
LOC: MED 15:18 → MMU 18:36 → MTU 21:18
PROVIDERS: ADMIT Family Medicine; ATTEND Family Medicine
DX: A41.9 Sepsis, unspecified organism (principal); E43 Unspecified severe protein-calorie malnutrition; L03.116 Cellulitis of left lower limb; E87.1 Hypo-osmolality and hyponatremia; L03.115 Cellulitis of right lower limb; B19.20 Unspecified viral hepatitis C without hepatic coma; Z20.822 Contact with and (suspected) exposure to COVID-19; F32.A Depression, unspecified; R56.9 Unspecified convulsions; E83.42 Hypomagnesemia; F41.9 Anxiety disorder, unspecified; R74.01 Elevation of levels of liver transaminase levels; Z90.49 Acquired absence of other specified parts of digestive tract; Z85.038 Personal history of other malignant neoplasm of large intestine; Z68.23 Body mass index [BMI] 23.0-23.9, adult
CPT/HCPCS: 36415; 71045; 73030; 80048; 80053; 80202; 82550; 83605; 83735; 84484; 85025; 87040; 87081; 93970; 96365; 96375; 97110; 97112; 97530; 99285; J0692; J0696; J2060; J2270; J2405; J3370; J3475; J7060; Q0092

== ENCOUNTER 2022-10-28 17:07 | Inpatient (IN) | payer OTHER ==
[~2022-10-28] VITALS: Ht 165.1 cm; Wt 57.6 kg
[~2022-10-28 17:07] MED LIST changes: +CEFEPIME IV; -CEPH-588 PO; +IV Vancomycin IV; +LAM200 PO; +LEVO0.083 PO; +QUET300T1 PO; -SULF-59 PO
[2022-10-28 17:19] VITALS: BP 117/66; PULSE 90; RESP 20; TEMP 99.2; O2SAT 95
[2022-10-28] MEDS ORDERED: VANCOMYCIN 1,000 MG in DEXTROSE 5% 250 ML IV ONE (18:30)
[2022-10-28] MEDS ORDERED: KETOROLAC 30 MG/ML VIAL IM ONE (18:30)
[2022-10-28] MEDS ORDERED: PIPERACILLIN/TAZOBACTAM 3.375 GM in DEXTROSE 5% 50 ML IV ONE (18:30)
--- NOTE | 2022-10-28 19:00 | NUR ---
67 Y/O F PATIENT PRESENTS TO ED WITH STATSIS ULCERS BILATERALY ON LOWER EXTREMITIES FOR THE LAST 8 MONTHS. PT STATES ONE DAY THE ULCERS POPPED UP . PER HOME HEALTH NURSE PT STATES SHE WAS WORRIED AND WANTED HER TO BE SEEN BY THE ER. DENIES N/V/D; SKIN IS PINK/WARM/DRY; AAOX4 WITH EVEN AND STEADY GAIT; LUNGS CLEAR BL; HR EVEN AND REGULAR; PT DENIES ANY FEVER, CP, SOB, OR COUGH AT THIS TIME; PATIENT STATES PAIN OF 10/10 AT THIS TIME; VSS; PATIENT POSITIONED FOR COMFORT; HOB ELEVATED; CALL LIGHT WITH IN REACH BEDRAILS UP X2; BED DOWN. ER MD MADE AWARE OF PT STATUS.
--- NOTE | 2022-10-28 19:10 | NUR ---
22 G IV PLACED, BLOOD WORK DONE, CHEST X RAY COMPLETED, PT PLACED ON PUERWICK, DIAPPER CHANGED.
[2022-10-28 19:17] LABS: BASOPHILS # (AUTO) 0.1 K/uL (0.00-0.22); BASOPHILS % (AUTO) 0.8 % (0.0-2.0); EOSINOPHILS # (AUTO) 0.1 K/uL (0-0.4); EOSINOPHILS % (AUTO) 0.7 % (0.0-4.0); HEMATOCRIT 33.5 % (36-48); HEMOGLOBIN 10.7 g/dL (12.0-16.0); LYMPHOCYTES # (AUTO) 1.2 K/uL (2.5-16.5); LYMPHOCYTES % (AUTO) 12.2 % (20.5-51.1); MEAN CORPUSCULAR HEMOGLOBIN 23 pg (27-31); MEAN CORPUSCULAR HGB CONC 32 g/dL (33-37); MEAN CORPUSCULAR VOLUME 72.5 fL (80-94); MONOCYTES # (AUTO) 0.8 K/uL (0.8-1.0); MONOCYTES % (AUTO) 8.5 % (1.7-9.3); NEUTROPHILS # (AUTO) 7.3 K/uL (1.8-7.7); NEUTROPHILS % (AUTO) 77.8 % (42.2-75.2); PLATELET COUNT (AUTO) 374 K/uL (140-450); RED BLOOD CELL COUNT(AUTO) 4.63 MIL/uL (4.20-5.40); RED CELL DISTRIBUTION WIDTH 16.9 % (11.6-13.7); WHITE BLOOD COUNT (AUTO) 9.4 K/uL (4.8-10.8)
[2022-10-28 19:29] VITALS: O2SAT 96
[2022-10-28] MEDS ORDERED: HYDR2TAB6 PO (19:30)
--- NOTE | 2022-10-28 19:30 | NUR ---
X RAY AT THE BEDSIDE
[2022-10-28 19:31] LABS: ALBUMIN 1.7 g/dL (3.4-5.0); ANION GAP 10.4 (8-16); CARBON DIOXIDE 29.6 mmol/L (21-32); CREATININE 0.6 mg/dL (0.6-1.3); TOTAL BILIRUBIN 0.3 mg/dL (0.0-1.0)
[2022-10-28] MEDS ORDERED: KETOROLAC 30 MG/ML VIAL ONE (19:35)
[2022-10-28] MEDS ORDERED: PIPERACILLIN/TAZOBACTAM 3.375 GM VIAL IV ONE (19:35)
[2022-10-28] MEDS ORDERED: VANCOMYCIN 1,000 MG VIAL ONE (19:35)
--- NOTE | 2022-10-28 19:42 | NUR ---
Note [email or web address] in EDM - 10/28/22 at 1943 by VANESSA Patient discharged with v/s stable. Written and verbal after care instructions given and explained. Patient alert, oriented and verbalized understanding of instructions. Ambulatory with steady gait. All questions addressed prior to discharge. ID band removed. Patient advised to follow up with PMD. Rx of given. Patient educated on indication of medication including possible reaction and side effects. Opportunity to ask questions provided and answered.
--- NOTE | 2022-10-28 19:43 | NUR ---
RELEASED CARE TO HENRIQUE PUENTES REPORT GIVEN AT 1930
[2022-10-28] MEDS ORDERED: MORPHINE SULFATE 4 MG/ML SYR IVP ONE (20:35)
[2022-10-28] MEDS ORDERED: NACL 0.9% 2,000 ML IV ONE (20:35)
[2022-10-28] MEDS ORDERED: POTASSIUM CHLORIDE 10 MEQ TABER PO ONE ×2 (20:55)
[2022-10-28] MEDS ORDERED: DOCUSATE SODIUM 100 MG GELCAP PO PRN (21:30)
[2022-10-28] MEDS ORDERED: ONDANSETRON 4 MG/2 ML VIAL IM/IVP PRN (21:30)
[2022-10-28] MEDS: NACL 0.9% 1,000 ML IV SCH (21:30)
[2022-10-28] MEDS ORDERED: ZOLPIDEM 5 MG TAB PO PRN (21:30)
[2022-10-28] MEDS ORDERED: ACETAMINOPHEN 325 MG TAB PO PRN (21:30)
[2022-10-28] MEDS ORDERED: POTASSIUM CHLORIDE 10 MEQ TABER PO PRN (21:30)
[2022-10-28] MEDS ORDERED: guaiFENesin DM 200/20 MG-10 ML 10 ML UDC PO PRN (21:30)
[2022-10-28] MEDS ORDERED: HYDROcodone/APAP 7.5/325 MG 1 TAB PO PRN (21:30)
[2022-10-28] MEDS ORDERED: ESCI5TAB PO (22:10)
[2022-10-28] MEDS ORDERED: VANCOMYCIN 500 MG in DEXTROSE 5% 100 ML IV ONE (22:50)
[2022-10-28] MEDS ORDERED: PANTOPRAZOLE 40 MG INJ VIAL IVP ONE (23:00)
--- NOTE | 2022-10-28 23:20 | NUR ---
Patient will be admitted to care of [facility]. Admited to [facility]. Will go to room 115. Belongings list completed. Report to edgar.
[2022-10-28 23:27] LABS: APPEARANCE,URINE CLEAR (CLEAR); BILIRUBIN,URINE NEGATIVE (NEGATIVE); BLOOD, URINE 3+ (NEGATIVE); COLOR,URINE YELLOW (YELLOW); LEUKOCYTE ESTERASE ,URINE 3+ (NEGATIVE); NITRITE, URINE POSITIVE (NEGATIVE); UGLUCOSE NEGATIVE (NEGATIVE)
[2022-10-28 23:35] LABS: CALCIUM OXALATE CRYSTALS,UR 0-10 /HPF (None Seen)
[2022-10-28 23:37] VITALS: BP 140/75; PULSE 88; RESP 18; TEMP 98.6; O2SAT 96; O2SAT 98
--- NOTE | 2022-10-28 23:37 | NUR ---
RECEIVED PT AAOX4 , FROM ER / [facility] , HAS OPEN WOUNDS ON THE BOTH LOWER LEGS , IV SITE INTACT AND PATENT , NOT IN ACUTE DISTRESS , RA - O2 SAT WNL . PT CAN ABLE TO TRANSFER TO BED BY SELF TURNING / MOVING BED FROM GURNEY TO BED , FALL RISK - PUT BED ALARM ON , FURTHER ADMISSION ASSESSMENT WILL BE DONE , REMINDS NPO EXCEPTS MEDS . ENSURE SAFETY , CALL LIGHT WITHIN REACH , WILL CONT. TO MONITOR .
[2022-10-29] MEDS ORDERED: VANCOMYCIN 500 MG VIAL ONE (00:19)
--- NOTE | 2022-10-29 01:00 | NUR ---
PT REFUSED WOUND ASSESSMENT , STILL REFUSING TO PHOTO THE RIGHT LEG , SHE IS SO MEAD , SHE SAID DON'T TOUCH MY LEGS IT HURTS , WILL CONT. TO MONITOR
--- NOTE | 2022-10-29 01:22 | NUR ---
PT C/O PAIN ON THE RIGHT LEG - SHE RATES THE PAIN - BP 143/ 78 , MN 85 , RR 20 , O2 SAT 97 % , WILL MEDICATE . Addendum: 10/29/22 at 0537 by Angeles Panchal RN AT 0127 SHE SWALLOWD THE NORCO TAB. - NO S/SX OF ASPIRATION NOTED , WILL CONT. TO MONITOR
--- NOTE | 2022-10-29 01:30 | NUR ---
BEDSIDE SWALLOWING TEST - PT SIPS OF SMALL WATER WITHOUT DIFFICULTY , POSITIVE GAG REFLEX , NO S/SX OF ASPIRATION , WILL GIVE SOMETHING TO EAT , PT REQUESTING CHOCOLATE AND VANILLA PUDDING AND JELLO - WILL PROVIDE AND WILL CONT. TO MONITOR . Addendum: 10/29/22 at 0533 by Angeles Panchal RN THE ABOVE NURSE'S NOTE IS TIME ERROR ENTRY , INSTEAD OF 0120 - DOMITILALR Addendum: 10/29/22 at 0557 by Angeles Panchal RN PER DR. DAVIES IF PT PASSED THE SWALLOWING TEST , MAY HAVE SOFT DIET , AND GIVE TUMS 500MG / TAB P.O ONE DOSE .
--- NOTE | 2022-10-29 02:00 | NUR ---
PT HIT THE CALL LIGHT , PT REQUESTING PAIN MEDICINE STRONGER THAN NORCO - I DISCUSSING HER SHE JUST TOOK NORCO JUST ONLY A MINUTES AND LET WAIT THE NORCO TO BE EFFECT , BUT SHE SO MAD AND SHE SAID I WANTS I SHOT LIKE A DILAUDID - WILL REFER TO DR. DAVIES .
--- NOTE | 2022-10-29 02:00 | NUR ---
ATE 3 CUPS OF VANILLA PUDDINGS , NO S/SX OF ASPIRATION NOTED , PER PT SHE HAS NO HX OF DIFFICULTY IN THE PAST AND SHE TAKING TABLETS AT HOME . WILL CONT. TO MONITOR . CALL LIGHT WITHIN REACH
--- NOTE | 2022-10-29 02:11 | NUR ---
PER SAMSON NO DILAUDID . INFORMING THE PT. ABOUT IT AND SHE BECOMES HYSTERICAL , MAD , SHOUTING , SCREAMING , MU CHARGE NURSE LEONOR TRYING TO CALM DOWN , BUT PT STILL SCREAMING AND HYSTERICAL , SHE SAID SHE WANTS TO GO HOME NOW , LET HER SISTER ELLIE PICK HER UP , SHE GIVE THE CONTACT NUMBER OF ELLIE - WILL CONTACT ELLIE .
--- NOTE | 2022-10-29 02:12 | NUR ---
PER PT'S SISTER ELLIE - HER SISTER CAN 'T ABLE TO MOVE , SO HOW SHE CAN ABLE TO RIDE HER CAR AND BESIDE THE PT . CAN'T ABLE TO MOVE SO HOW I WILL TAKE CARE MY SISTER ? SHE CAN'T EVEN WALK ELLIE VERBALIZES . WILL ADDRESS THE ISSUE TO OUR MOTEL MAID LYLE .
--- NOTE | 2022-10-29 02:21 | NUR ---
SKIP HOIST ENGINEER TALKING THE PT AND HE REMINDING THE PT SHE CAN'T ABLE TO WALK SO VERY HARD TO HER SISTER IF THE SISTER WILL BUSINESS ASSISTANT HER , PER LYLE RE REFER THE PT TO DR. DAVIES . PT STILL SHOUTING AND HYSTERICAL PER PT SHE WANTS HER PAIN MED AND METHADONE .
--- NOTE | 2022-10-29 02:30 | NUR ---
PER DR. DAVIES , GIVE ATIVAN 2MG TIV NOW ONE DOSE ONLY , WILL CARRY OUT . Addendum: 10/29/22 at 0554 by Angeles Panchal RN AT 0230 BP 134/82 , NE 85 , RR 20 , O2 SAT 98 % - WILL GIVE ATIVAN ORDERED .
[2022-10-29] MEDS ORDERED: LORazepam 2 MG/ML VIAL IVP STA (02:32)
--- NOTE | 2022-10-29 03:00 | NUR ---
ROUNDS , NO S/SX OF ACUTE DISTRESS NOTED , BED ALARM ON , CALL LIGHT WITHIN REACH . WILL CONT. TO MONITOR
--- NOTE | 2022-10-29 04:30 | NUR ---
ROUNDS , PT ACCIDENTALLY PULLED OUT THE IV LINE , IV NEEDLE FOUND IN THE BEDSIDE , NEEDLE INTACT , MIN. BLEEDING , INFORMING PT FOR IV NEEDLE RE INSERTION , BUT PT REFUSING IT , SHE SAYS " COULD YOU PLEASE LET ME STAYING ALONE , I WANTS TO REST AND SLEEP , DO IT LATTER , PT'S SAYS . CALL LIGHT WITHIN REACH , ENSURE SAFETY , SIDE RAILS UP , LOW BED POSITION , BED ALARM ON , WILL CONT. TO MONITOR
[2022-10-29] MEDS: PIPERACILLIN/TAZOBACTAM 3.375 GM in DEXTROSE 5% 50 ML IV SCH ×3 (05:00→21:12)
[2022-10-29] MEDS ORDERED: CALCIUM CARBONATE 500 MG TAB.CHEW PO ONE (05:20)
--- NOTE | 2022-10-29 06:00 | NUR ---
ROUNDS , SLEEPING , AROUSABLE , EASILY GO BACK SLEEP - GOT IV ATIVAN , WILL CONT. TO MONITOR , CALL LIGHT WITHIN REACH , BED ALARM ON .
[2022-10-29 07:05] LABS: BASOPHILS # (AUTO) 0.1 K/uL (0.00-0.22); BASOPHILS % (AUTO) 0.6 % (0.0-2.0); EOSINOPHILS # (AUTO) 0.1 K/uL (0-0.4); EOSINOPHILS % (AUTO) 0.7 % (0.0-4.0); HEMATOCRIT 28.4 % (36-48); HEMOGLOBIN 9.3 g/dL (12.0-16.0); LYMPHOCYTES # (AUTO) 0.9 K/uL (2.5-16.5); LYMPHOCYTES % (AUTO) 9.5 % (20.5-51.1); MEAN CORPUSCULAR HEMOGLOBIN 24 pg (27-31); MEAN CORPUSCULAR HGB CONC 33 g/dL (33-37); MEAN CORPUSCULAR VOLUME 72.7 fL (80-94); MONOCYTES # (AUTO) 0.7 K/uL (0.8-1.0); MONOCYTES % (AUTO) 7.3 % (1.7-9.3); NEUTROPHILS # (AUTO) 8.1 K/uL (1.8-7.7); NEUTROPHILS % (AUTO) 81.9 % (42.2-75.2); PLATELET COUNT (AUTO) 305 K/uL (140-450); RED BLOOD CELL COUNT(AUTO) 3.91 MIL/uL (4.20-5.40); WHITE BLOOD COUNT (AUTO) 9.9 K/uL (4.8-10.8)
[2022-10-29 07:28] LABS: ALBUMIN 1.5 g/dL (3.4-5.0); ANION GAP 8.8 (8-16); CARBON DIOXIDE 29.5 mmol/L (21-32); CREATININE 0.5 mg/dL (0.6-1.3); POTASSIUM 3.3 mmol/L (3.5-5.1); TOTAL BILIRUBIN 0.4 mg/dL (0.0-1.0)
[2022-10-29 08:00] VITALS: BP 127/65; PULSE 68; PULSE 70; RESP 16; RESP 20; TEMP 97.1; TEMP 97.2; O2SAT 100; O2SAT 99
--- NOTE | 2022-10-29 08:00 | NUR ---
ENDORSED PT FOR CONT. OF CARE , BED ALARM ON , CALL LIGHT WITHIN REACH . STILL REFUSED THE IV RE INSERTION . - ENDORSED
--- NOTE | 2022-10-29 08:05 | NUR ---
CALLED SISTER ELLIE TO CONFIRM NAME OF TREATMENT CLINIC WHERE PT RECEIVES METHADONE. PER SISTER ELLIE, PT RECEIVES METHADONE FROM [facility].
--- NOTE | 2022-10-29 08:10 | NUR ---
CALLED [facility], PER DISPENSING NURSE PT RECEIVES 145MG OF METHADONE PO DAILY. NOTIFIED PHYSICIAN FOR NEW ORDER.
--- NOTE | 2022-10-29 08:30 | NUR ---
receive the patinet from the Dara rooney charge nurse in rm 115 admitting diagnosis of bilateral lower extremity cellulitis . 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 for antibiotics , pain mgt . will continue to monitor
--- NOTE | 2022-10-29 08:45 | NUR ---
PATIENT HAS BEEN SCREENED AND CATEGORIZED HIGH NUTRITION RISK. PATIENT WILL BE SEEN WITHIN 1-2 DAYS OF ADMISSION. 10/29/22-10/30/22 FNS CONSULT/REFERRAL RECEIVED FOR PRESSURE ULCER/WOUND AND GENERAL NUTRITION EDUCATION ON 10/29/22. MARIELY GIL RD
[2022-10-29] MEDS: METHADONE HCL ORAL SOLN 10 MG/ML SOLN PO SCH (09:00)
[2022-10-29] MEDS ORDERED: COMMUNICATION ORDER MC SCH (09:00)
[2022-10-29] MEDS: VANCOMYCIN PER PHARMACY MC SCH (09:00)
[2022-10-29] MEDS: PANTOPRAZOLE 40 MG TABEC PO SCH (10:06)
--- NOTE | 2022-10-29 10:47 | NUR ---
DC [age] YRS OLD FEMALE PATIENT WAS ADMITTED FROM HOME WITH A DX OF BILATERAL LOWER EXT CELLULITIS. PATIENT HAS NO MEDICAL HISTORY. CXR SHOWED NO ACUTE CARDIOPULMONARY DISEASE. WOUND, URINE AND BLOOD CULTURE PENDING. ADMINISTERED IVF IN ABX VANCOMYCIN AND ZOSYN. DC PLAN TO GO HOME WHEN STABLE. CM TO FOLLOW
[2022-10-29] MEDS ORDERED: IBUPROFEN 600 MG TAB PO PRN (10:55)
[2022-10-29] MEDS: VANCOMYCIN 750 MG in DEXTROSE 5% 250 ML IV SCH ×2 (11:59→22:27)
--- NOTE | 2022-10-29 14:11 | NUR ---
10/29/22 RD INITIAL ASSESSMENT COMPLETED PLEASE REFER TO NUTRITION ASSESSMENT UNDER CARE ACTIVITY FOR ESTIMATED NUTRITIONAL NEEDS. 1. CONTINUE SOFT DIET TOLERATED. 2. SPOOLING SUPERVISOR RECOMMENDS MARY BID FOR RIGHT AND LEFT LOWER LEG OPEN WOUND. THIS WILL PROVIDE 160 KCALS AND 5 GRAMS PROTEIN. 3. SPOOLING SUPERVISOR RECOMMENDS ENSURE PLUS HIGH PROTEIN SUPPLEMENT FOR PATIENTS POOR PO INTAKE. THIS WILL PROVIDE 700 KCALS AND 40 GRAMS PROTEIN. 4. SPOOLING SUPERVISOR WILL CONTINUE TO MONITOR PO INTAKE, WOUNDS, WEIGHT, AND NUTRITION RELATED LAB VALUES 5. RD TO FOLLOW-UP 3-5 DAYS, MODERATE RISK REVIEWED BY MARILYN LAMB RD
[2022-10-29] MEDS: NACL 0.9% 1,000 ML IV SCH (14:13)
[2022-10-29 16:00] VITALS: BP 117/62; PULSE 73; RESP 18; TEMP 97.4; O2SAT 95
--- NOTE | 2022-10-29 16:39 | NUR ---
P.T. NOTES P.T. EVAL COMPLETED; REFER TO EVAL FOR DETAILS.
--- NOTE | 2022-10-29 19:06 | NUR ---
will endorse to night time nanny rn fro continuity of care . methadone for pain . continue home medication for antibiotic and pain medications
--- NOTE | 2022-10-29 19:07 | NUR ---
RECEIVED PT FROM MORNING SHIFT NURSE. PT IS AOX4, BEDREST, ABLE TO VERBALIZE NEEDS AND ABLE TO FOLLOW COMMANDS. PT IS ON ROOM AIR AND ON SOFT DIET. PT HAS IV IS OUT. PT HAS BILATERAL LOWER EXTREMITY ULCER. NO COMPLAIN OF PAIN AT THIS TIME. NO S/S OF RESPIRATORY DISTRESS NOTED. ALL SAFETY MEASURES IMPLEMENTED. BED IN LOW POSITION, BED WHEELS ON LOCK AND CALL LIGHT WITHIN REACH.
[2022-10-29 20:00] VITALS: PULSE 84; RESP 18; TEMP 97.4; O2SAT 100
--- NOTE | 2022-10-29 20:00 | NUR ---
INSERTED IV ON RIGHT HAND GAUGE 24 AND LEFT ARM GAUGE 24. IV IS NOW INTACT, PATENT AND FLUSHING WELL. ALL SAFETY MEASURES IMPLEMENTED. BED IN LOW POSITION, BED WHEELS ON LOCK AND CALL LIGHT WITHIN REACH.
[2022-10-29] MEDS: HYDROmorphone 2 MG TAB PO PRN (21:10)
--- NOTE | 2022-10-29 21:12 | NUR ---
SCHEDULED AND PRESCRIBED MEDICATION WAS GIVEN TO PT. DILAUDID WAS ALSO GIVEN DUE TO BILATERAL EXTREMITY PAIN WITH PAIN SCALE OF 10/10. ALL SAFETY MEASURES IMPLEMENTED. BED IN LOW POSITION, BED WHEELS ON LOCK AND CALL LIGHT WITHIN REACH.
[2022-10-30] VITALS: BP 120/68; PULSE 84; RESP 18; TEMP 97.4; O2SAT 100
--- NOTE | 2022-10-30 | NUR ---
PT IS ON SLEEP. CHEST RISE AND FALL SYMMETRICALLY NOTED. RESPIRATION IS EVEN AND UNLABORED. ALL SAFETY MEASURES IMPLEMENTED. BED IN LOW POSITION, BED WHEELS ON LOCK AND CALL LIGHT WITHIN REACH.
--- NOTE | 2022-10-30 02:00 | NUR ---
CHECKED THE PT, STILL ON SLEEP. CHEST RISE AND FALL SYMMETRICALLY NOTED. RESPIRATION IS EVEN AND UNLABORED.ALL SAFETY MEASURES IMPLEMENTED. BED IN LOW POSITION, BED WHEELS ON LOCK AND CALL LIGHT WITHIN REACH.
--- NOTE | 2022-10-30 04:32 | NUR ---
PT WAS GIVEN WARM BLANKET AND PUT SOCKS ON PT. NO COMPLAIN OF PAIN AND NO S/S OF RESPIRATORY DISTRESS NOTED. ALL SAFETY MEASURES IMPLEMENTED. BED IN LOW POSITION, BED WHEELS ON LOCK AND CALL LIGHT WITHIN REACH.
[2022-10-30] MEDS: PIPERACILLIN/TAZOBACTAM 3.375 GM in DEXTROSE 5% 50 ML IV SCH ×3 (05:35→20:19)
[2022-10-30] MEDS: LEVOTHYROXINE 0.088 MG TAB PO SCH (05:37)
[2022-10-30] MEDS: NACL 0.9% 1,000 ML IV SCH ×2 (06:19→23:39)
[2022-10-30 07:01] LABS: BASOPHILS % (AUTO) 0.3 % (0.0-2.0); EOSINOPHILS # (AUTO) 0.1 K/uL (0-0.4); EOSINOPHILS % (AUTO) 1.1 % (0.0-4.0); HEMATOCRIT 29.6 % (36-48); HEMOGLOBIN 9.5 g/dL (12.0-16.0); LYMPHOCYTES # (AUTO) 1.3 K/uL (2.5-16.5); LYMPHOCYTES % (AUTO) 16.1 % (20.5-51.1); MEAN CORPUSCULAR HEMOGLOBIN 23 pg (27-31); MEAN CORPUSCULAR HGB CONC 32 g/dL (33-37); MEAN CORPUSCULAR VOLUME 72.9 fL (80-94); MONOCYTES # (AUTO) 0.6 K/uL (0.8-1.0); MONOCYTES % (AUTO) 7.6 % (1.7-9.3); NEUTROPHILS # (AUTO) 5.8 K/uL (1.8-7.7); NEUTROPHILS % (AUTO) 74.9 % (42.2-75.2); PLATELET COUNT (AUTO) 315 K/uL (140-450); RED BLOOD CELL COUNT(AUTO) 4.05 MIL/uL (4.20-5.40); RED CELL DISTRIBUTION WIDTH 17.2 % (11.6-13.7); WHITE BLOOD COUNT (AUTO) 7.8 K/uL (4.8-10.8)
[2022-10-30 07:05] LABS: ALBUMIN 1.5 g/dL (3.4-5.0); ANION GAP 11.5 (8-16); CARBON DIOXIDE 28.6 mmol/L (21-32); CREATININE 0.6 mg/dL (0.6-1.3); POTASSIUM 4.1 mmol/L (3.5-5.1); TOTAL BILIRUBIN 0.3 mg/dL (0.0-1.0)
--- NOTE | 2022-10-30 07:27 | NUR ---
PT IS STABLE. ENDORSED PT TO MORNING SHIFT NURSE FOR CONTINUITY OF CARE.
[2022-10-30 08:00] VITALS: BP 135/69; PULSE 88; RESP 18; TEMP 98.2; O2SAT 98
[2022-10-30] MEDS: VANCOMYCIN PER PHARMACY MC SCH (09:00)
[2022-10-30] MEDS: PANTOPRAZOLE 40 MG TABEC PO SCH (09:48)
[2022-10-30] MEDS: ESCITALOPRAM 20 MG TAB PO SCH (09:49)
[2022-10-30] MEDS: METHADONE HCL ORAL SOLN 10 MG/ML SOLN PO SCH (10:43)
--- NOTE | 2022-10-30 11:04 | NUR ---
UNABLE TO SCAN 0900 MEDICATION METHADOSE 145MG, PHARMACY AND TECHNICAL SUPPORTING CALLED. RECEIVE TICKET #[id number] FOR TECHNICAL SUPPORT. NURSE FINALLY ABLE TO SCAN MEDICATION VIA THE STICK FROM PHARMACY. PATIENT HAVE MEDS AFTER 1000 O'CLOCK. ADDITIONALLY, PATIENT'S VANCOMYCIN TROUGH DRAW AROUND 1030. PENDING FOR RESULT AT THIS TIME. WILL CONTINUE TO MONITOR Addendum: 10/30/22 at 1202 by Vidya Whitlock RN AROUND 1200, vancomycin trough come back 11.5VANCOMYCIN TROUGH COME BACK 11.5, PHARMACY CALLED FOR ADVISE. PER PHARMACIST, IT OKAY TO GIVE 0900 VANCOMYCIN DOSE. WILL CONTINUE TO MONITOR
--- NOTE | 2022-10-30 11:19 | NUR ---
WOUND CARE NOTE: WOUND CARE NURSE ATTEMPTS TO PERFORM WOUND ASSESSMENT, PT. WAS NOT TOUCHED AT ALL AND PT SCREAMING OUT LOUD STATE " DON'T TOUCH, DON'T EVEN LOOK AT IT." EXPLAINED RISKS AND BENEFITS, PT STILL REFUSES WOUND CARE AND ASSESSMENT, EXPLAIN TO PT. THAT SHE HAS INFECTED WOUNDS TO BLE WITH 100% SLOUGH TISSUE THAT REQUIRES DEBRIDEMENT AND DAILY WOUND CARE. PER PT. " I HAVE MY HOME HEALTH NURSE TO DO DRESSING CHANGE". EXPLAINED TO PT. THAT SHE IS AT HOSPITAL THAT REQUIRES WOUND ASSESSMENT AND RECOMMENDATIONS FROM ME TO MAKE SURE WOUND CONDITION WON'T GET WORSE. PT. REFUSES FOR THE 3RD TIME. POC DISCUSSED WITH CHARGE NURSE, INFORM DR. MCBRIDE OF SURGEON CONSULT. PER CHARGE NURSE BIA THAT PT IS WITH HOSPICE COMFORT CARE, IS AWARE AND NO DEBRIDEMENT AT THIS TIME. WILL START WOUND CARE PER PROTOCOL AT THIS TIME POC DISCUSSED WITH PT. PT REPLY" DO WHATEVER YOU WANT LONG YOU DON'T TOUCH ME." -CLEANSE BILATERAL LEGS WOUNDS WITH NS, PAT DRY, APPLY OIL EMULSION DRESSING COVER WITH ABD PAD AND WRAP WITH KERLIX ROLL, SECURED WITH TAPE DAILY AND PRN IF SOILING. -PLEASE CONTINUE HOME HEALTH CARE FOR WOUND CARE WHEN DISCHARGED Addendum: 10/30/22 at 1240 by Trevon Foley RN (Grace) PT. WITH LOW NOEMI SCALE AT HIGH RISK, CONTINUE TO FOLLOW PRESSURE INJURY PREVENTION INTERVENTIONS. -APPLY FOAM DRESSING TO SACRALCOCCYX AND OTHER BONY PROMINENCES QD PREVENTION -POSITIONING: TURN AND REPOSITION PATIENT Q 2H OR SOONER USE PILLOWS TO KEEP BONY PROMINENCES FROM DIRECT CONTACT WITH SURFACES USE REPOSITIONING WEDGES TO PROVIDE 30-DEGREE ANGLE FOR SIDE LYING POSITIONS OFFLOADING OR FOAM DRESSING TO ALL TUBING TO PREVENT MEDICAL DEVICES RELATED PRESSURE INJURY -RE-EVALUATING AND MANAGING INCONTINENCE MONITOR SKIN CONDITION DURING POSITION CHANGE DO NOT MASSAGE REDNESS, BONY PROMINENCES FREQUENT CHON-CARE AND PROVIDE BARRIER CREAMS PRN IF SOILING MOISTURE CONTROL BY OFFER BED BAGLEY/URINAL /ABSORBENT PAD TO WICK AND HOLD MOISTURE KEEP SKIN DRY AND PROTECT FROM FRICTION -MANAGE FRICTION/SHEAR/MOBILITY KEEP HOB AT THE LOWEST LEVEL OF ELEVATION NO MORE THAN 30 DEGREE UNLESS OTHERWISE CONTRAINDICATED USE LIFT SHEET OR TRANSFER DEVICE TO MOVE PATIENT AND PREVENT LATERAL SHEER. PROTECT HEELS, ELBOWS BONY PROMINENCES WITH SKIN BERRIES OR FOAM DRESSING IF EXPOSED TO FRICTION OFFLOAD BILATERAL HEELS BY PLACING PILLOWS UNDER CALVES AT ALL TIMES, UNLESS OTHERWISE CONTRAINDICATED -PRESSURE REDISTRIBUTION SURFACE THERAPY TIFFANIE ISOFLEX MATTRESS -NUTRITION: PLEASE FOLLOW RD RECOMMENDATIONS AND OFFER NUTRITION SUPPLEMENTS IF ORDERED. PLEASE CONTACT WOUND CARE NURSE FOR ANY QUESTION AND CHANGE OF WOUND CONDITION.
[2022-10-30 11:49] LABS: BARBITURATE, URINE NEGATIVE ng/ml (NEG <=200); BENZODIAZEPINE, URINE POSITIVE ng/mL (NEG <=200); CANNABINOID, URINE NEGATIVE ng/mL (NEG <=50); COCAINE, URINE NEGATIVE ng/mL (NEG <=300); OPIATE, URINE POSITIVE ng/mL (NEG <=2000); PHENCYCLIDINE SCREEN,URINE NEGATIVE ng/mL (NEG <=25)
[2022-10-30] MEDS: VANCOMYCIN 750 MG in DEXTROSE 5% 250 ML IV SCH ×2 (12:04→22:11)
[2022-10-30] MEDS: GAUZE TP SCH (13:00)
[2022-10-30 16:00] VITALS: BP 117/62; PULSE 73; RESP 17; TEMP 97.4; O2SAT 95
--- NOTE | 2022-10-30 16:03 | NUR ---
REVISIT PT. OFFER WOUND CARE, PT REFUSES. DURING THE VISIT, PT. IS SCREAMING TO A STUDENT NURSE AND A DIRECTOR OF CONTENT AND PROGRAMMING WHO ARE TRYING TO HELP HER. PRIMARY RN MITZI SALDANA.
--- NOTE | 2022-10-30 18:42 | NUR ---
PATIENT REFUSE WOUND CARE NURSE'S SERVICE BECAUSE PATIENT AFRAID THAT WOUND CARE WILL "SCRUB [SHE] WOUND." LATER AFTERNOON, PATIENT ASK NURSE IF TOMORROW (10/31/2022)'S PROCEDURE WILL BE VERY PAINFUL. NURSE EXPLAIN, DURING PROCEDURE, SURGEON NORMALLY WILL GIVE SEDATIVE MEDICATION TO MAKE SURGERY SITE FEELING NUMBER. WILL F/U
--- NOTE | 2022-10-30 19:20 | NUR ---
RECEIVED PT FROM MORNING SHIFT NURSE. PT IS AOX4, BEDREST, ABLE TO VERBALIZE NEEDS AND ABLE TO FOLLOW COMMANDS. PT IS ON ROOM AIR AND ON SOFT DIET. PT HAS IV ON LEFT UPPER ARM GAUGE 24 RUNNING WITH NS AT 60ML/HR. PT HAS BILATERAL LOWER EXTREMITY ULCER. COMPLAINING OF PAIN ON BILATERAL LOWER EXTREMITIES WITH PAIN SCALE OF 10/10. NO S/S OF RESPIRATORY DISTRESS NOTED. ALL SAFETY MEASURES IMPLEMENTED. BED IN LOW POSITION, BED WHEELS ON LOCK AND CALL LIGHT WITHIN REACH.
[2022-10-30 20:00] VITALS: PULSE 77; RESP 19; TEMP 97.4; O2SAT 99
[2022-10-30] MEDS: HYDROmorphone 2 MG TAB PO PRN (20:23)
--- NOTE | 2022-10-30 20:23 | NUR ---
SCHEDULED MEDICATION WAS GIVEN TO PT PER MD ORDER. PT WAS ALSO GIVEN DILAUDID DUE TO BILATERAL LOWER EXTREMITY PAIN WITH PAIN SCALE OF 10/10. ALL SAFETY MEASURES IMPLEMENTED. BED IN LOW POSITION, BED WHEELS ON LOCK AND CALL LIGHT WITHIN REACH.
--- NOTE | 2022-10-30 22:11 | NUR ---
SCHEDULED MEDICATION WAS GIVEN TO PT PER MD ORDER. NO COMPLAIN OF PAIN. NO S/S OF RESPIRATORY DISTRESS NOTED. ALL SAFETY MEASURES IMPLEMENTED. BED IN LOW POSITION, BED WHEELS ON LOCK AND CALL LIGHT WITHIN REACH
[2022-10-31] VITALS: BP 143/82; PULSE 77; RESP 19; TEMP 97.4; O2SAT 99
--- NOTE | 2022-10-31 04:00 | NUR ---
MORNING CARE WAS DONE TO PT. CHANGED GOWN, LINENS, BLANKET AND DIAPER SHE PREFER. NO S/S OF RESPIRATORY DISTRESS NOTED. ALL SAFETY MEASURES IMPLEMENTED. BED IN LOW POSITION, BED WHEELS ON LOCK AND CALL LIGHT WITHIN REACH
[2022-10-31] MEDS: PIPERACILLIN/TAZOBACTAM 3.375 GM in DEXTROSE 5% 50 ML IV SCH ×3 (05:35→20:20)
[2022-10-31] MEDS: HYDROmorphone 2 MG TAB PO PRN ×3 (05:36→22:38)
[2022-10-31] MEDS: LEVOTHYROXINE 0.088 MG TAB PO SCH (05:36)
[2022-10-31 06:46] LABS: ALBUMIN 1.7 g/dL (3.4-5.0); ANION GAP 8.9 (8-16); CARBON DIOXIDE 32.3 mmol/L (21-32); CREATININE 0.6 mg/dL (0.6-1.3); POTASSIUM 4.2 mmol/L (3.5-5.1); TOTAL BILIRUBIN 0.3 mg/dL (0.0-1.0)
[2022-10-31 06:48] LABS: BASOPHILS # (AUTO) 0.1 K/uL (0.00-0.22); BASOPHILS % (AUTO) 0.5 % (0.0-2.0); EOSINOPHILS # (AUTO) 0.1 K/uL (0-0.4); EOSINOPHILS % (AUTO) 0.8 % (0.0-4.0); HEMATOCRIT 30.9 % (36-48); HEMOGLOBIN 10.2 g/dL (12.0-16.0); LYMPHOCYTES # (AUTO) 1.3 K/uL (2.5-16.5); LYMPHOCYTES % (AUTO) 12.3 % (20.5-51.1); MEAN CORPUSCULAR HEMOGLOBIN 24 pg (27-31); MEAN CORPUSCULAR HGB CONC 33 g/dL (33-37); MEAN CORPUSCULAR VOLUME 72.1 fL (80-94); MONOCYTES # (AUTO) 0.9 K/uL (0.8-1.0); MONOCYTES % (AUTO) 7.9 % (1.7-9.3); NEUTROPHILS # (AUTO) 8.4 K/uL (1.8-7.7); NEUTROPHILS % (AUTO) 78.5 % (42.2-75.2); PLATELET COUNT (AUTO) 279 K/uL (140-450); RED BLOOD CELL COUNT(AUTO) 4.29 MIL/uL (4.20-5.40); RED CELL DISTRIBUTION WIDTH 17.4 % (11.6-13.7); WHITE BLOOD COUNT (AUTO) 10.7 K/uL (4.8-10.8)
--- NOTE | 2022-10-31 07:45 | NUR ---
PT IS STABLE. ENDORSED PT TO MORNING SHIFT NURSE FOR CONTINUITY OF CARE.
--- NOTE | 2022-10-31 07:50 | NUR ---
RECEIVED PT FROM NIGHT RN, PT IS AWAKE, ALERT AND ORIENTED, LYING ON THE BED WITH SIDE RAILS AND CALL LIGHT WITHIN REACH, PT IS ON ROOM AIR, BILATERAL LOWER EXTREMITIES CELLULITIS NOTED WORLD TRAVEL COUNSELOR, IV LINE ON THE LEFT UPPER ARM G. 20 WITH NS INFUSING AT 60ML/HR, NO SIGN OF DISTRESS NOTED AND WILL CONTINUE TO MONITOR PT.
[2022-10-31 08:00] VITALS: BP 130/63; PULSE 73; RESP 18; TEMP 98.9; O2SAT 98
[2022-10-31] MEDS: PANTOPRAZOLE 40 MG TABEC PO SCH ×2 (09:00→09:25)
[2022-10-31] MEDS: ESCITALOPRAM 20 MG TAB PO SCH (09:27)
[2022-10-31] MEDS: METHADONE HCL ORAL SOLN 10 MG/ML SOLN PO SCH (09:28)
[2022-10-31] MEDS: VANCOMYCIN PER PHARMACY MC SCH (09:37)
[2022-10-31] MEDS: VANCOMYCIN 750 MG in DEXTROSE 5% 250 ML IV SCH ×2 (09:37→22:40)
[2022-10-31] MEDS: GAUZE TP SCH (13:56)
[2022-10-31] MEDS: NACL 0.9% 1,000 ML IV SCH (14:01)
--- NOTE | 2022-10-31 14:15 | NUR ---
PT WAS CLEANED AND REPOSITIONED NOW
[2022-10-31 16:00] VITALS: BP 134/76; PULSE 70; RESP 18; TEMP 97.3; O2SAT 98
--- NOTE | 2022-10-31 16:40 | NUR ---
PHYSICAL THERAPY CO-SIGN The Physical Therapy Progress Notes documented by Practice Professional have been reviewed. Reviewed/Co-Signed by: Ginny Cadena PT Documentation Done by:MILAGRO VILLEGAS RIDING TEACHER Addendum: 10/31/22 at 1640 by Ginny Cadena PT Amended: Links added.
--- NOTE | 2022-10-31 19:25 | NUR ---
ENDORSED PT TO NIGHT RN FOR CONTINUITY OF CARE, PT IS STABLE WITH MOTHER AND SISTER ON BEDSIDE.
--- NOTE | 2022-10-31 19:26 | NUR ---
RECEIVED PT FROM MORNING SHIFT NURSE. PT IS AOX4, BEDREST, ABLE TO VERBALIZE NEEDS AND ABLE TO FOLLOW COMMANDS. PT IS ON ROOM AIR AND ON NPO EXCEPT MEDS DIET. PT HAS IV ON LEFT UPPER ARM GAUGE 24 RUNNING WITH NS AT 60. PT HAS BILATERAL LOWER EXTREMITY ULCER. NO COMPLAIN OF PAIN AT THIS TIME. NO S/S OF RESPIRATORY DISTRESS NOTED. ALL SAFETY MEASURES IMPLEMENTED. BED IN LOW POSITION, BED WHEELS ON LOCK AND CALL LIGHT WITHIN REACH.
[2022-10-31 20:00] VITALS: PULSE 72; RESP 17; TEMP 98; O2SAT 98
--- NOTE | 2022-10-31 20:00 | NUR ---
IV IS INFILTRATED. INSERTED IV ON RIGHT FOREARM GAUGE 22. IV IS NOW PATENT, INTACT AND FLUSHING WELL. ALL SAFETY MEASURES IMPLEMENTED. BED IN LOW POSITION, BED WHEELS ON LOCK AND CALL LIGHT WITHIN REACH.
--- NOTE | 2022-10-31 20:20 | NUR ---
ALL SCHEDULED AND PRESCRIBED MEDICATION WAS GIVEN TO PT PER MD ORDER. ALL SAFETY MEASURES IMPLEMENTED. BED IN LOW POSITION, BED WHEELS ON LOCK AND CALL LIGHT WITHIN REACH.
--- NOTE | 2022-10-31 22:00 | NUR ---
WOUND DRESSING WAS DONE TO PT. CLEANED WITH NS AND PUT XEROFOAM PETROLEUM DRESSING AND COVER IT WITH ABDOMINAL PAD AND KERLIX. ALL SAFETY MEASURES IMPLEMENTED. BED IN LOW POSITION, BED WHEELS ON LOCK AND CALL LIGHT WITHIN REACH.
--- NOTE | 2022-10-31 22:40 | NUR ---
SCHEDULED AND PRESCRIBED MEDICATION WAS GIVEN TO PT PER MD ORDER. DILAUDID WAS ALSO GIVEN DUE TO PAIN ON BILATERAL LOWER EXTREMITY WITH PAIN SCALE OF 10/10. ALL SAFETY MEASURES IMPLEMENTED. BED IN LOW POSITION, BED WHEELS ON LOCK AND CALL LIGHT WITHIN REACH.
[2022-11-01] VITALS: BP 119/68; PULSE 72; RESP 17; TEMP 98; O2SAT 99
--- NOTE | 2022-11-01 02:00 | NUR ---
CHECKED THE PT, STILL ON SLEEP. CHEST RISE AND FALL SYMMETRICALLY NOTED. RESPIRATION IS EVEN AND UNLABORED. ALL SAFETY MEASURES IMPLEMENTED. BED IN LOW POSITION, BED WHEELS ON LOCK AND CALL LIGHT WITHIN REACH.
[2022-11-01] MEDS: PIPERACILLIN/TAZOBACTAM 3.375 GM in DEXTROSE 5% 50 ML IV SCH ×3 (05:08→20:43)
[2022-11-01] MEDS: LEVOTHYROXINE 0.088 MG TAB PO SCH (05:35)
[2022-11-01 06:26] LABS: ALBUMIN 1.6 g/dL (3.4-5.0); ANION GAP 7.2 (8-16); CARBON DIOXIDE 33.9 mmol/L (21-32); CREATININE 0.6 mg/dL (0.6-1.3); POTASSIUM 4.1 mmol/L (3.5-5.1); TOTAL BILIRUBIN 0.3 mg/dL (0.0-1.0)
[2022-11-01 07:07] LABS: BASOPHILS % (AUTO) 0.4 % (0.0-2.0); EOSINOPHILS # (AUTO) 0.1 K/uL (0-0.4); EOSINOPHILS % (AUTO) 0.6 % (0.0-4.0); HEMATOCRIT 29.3 % (36-48); HEMOGLOBIN 9.6 g/dL (12.0-16.0); LYMPHOCYTES # (AUTO) 0.9 K/uL (2.5-16.5); LYMPHOCYTES % (AUTO) 9.5 % (20.5-51.1); MEAN CORPUSCULAR HEMOGLOBIN 24 pg (27-31); MEAN CORPUSCULAR HGB CONC 33 g/dL (33-37); MEAN CORPUSCULAR VOLUME 72.4 fL (80-94); MONOCYTES # (AUTO) 0.7 K/uL (0.8-1.0); MONOCYTES % (AUTO) 7.8 % (1.7-9.3); NEUTROPHILS # (AUTO) 7.6 K/uL (1.8-7.7); NEUTROPHILS % (AUTO) 81.7 % (42.2-75.2); PLATELET COUNT (AUTO) 312 K/uL (140-450); RED BLOOD CELL COUNT(AUTO) 4.06 MIL/uL (4.20-5.40); RED CELL DISTRIBUTION WIDTH 17.3 % (11.6-13.7); WHITE BLOOD COUNT (AUTO) 9.3 K/uL (4.8-10.8)
--- NOTE | 2022-11-01 07:16 | NUR ---
PT IS STABLE. ENDORSED PT TO MORNING SHIFT NURSE FOR CONTINUITY OF CARE.
--- NOTE | 2022-11-01 07:45 | NUR ---
PATIENT RECEIVED AT BED SIDE , ON BED REST , AWAKE , A/OX4 ,NO SOB , NO COMPLAIN AT THIS TIME , SAFETY ON PLACE , SIDE RAILS UP X2 , BED IN LOWER POSITION , CALL LIGHT WITHIN REACH ON SOFT DIET DIET, NOW NPO EXCEPT MED FOR INCISION AND DRAN , SKIN SEE SKIN ASSESSMENT , BED BOUND , CONTINENT GI , INCONTINENT , PATIENT STILL UNDER OBSERVE .
[2022-11-01 08:00] VITALS: BP 123/69; PULSE 79; RESP 19; TEMP 97.7; O2SAT 95
[2022-11-01] MEDS: PANTOPRAZOLE 40 MG TABEC PO SCH (08:15)
[2022-11-01] MEDS: ESCITALOPRAM 20 MG TAB PO SCH (08:17)
[2022-11-01] MEDS: NACL 0.9% 1,000 ML IV SCH (08:18)
[2022-11-01] MEDS: HYDROmorphone 2 MG TAB PO PRN ×2 (08:28→17:37)
[2022-11-01] MEDS: METHADONE HCL ORAL SOLN 10 MG/ML SOLN PO SCH (08:33)
[2022-11-01] MEDS: VANCOMYCIN PER PHARMACY MC SCH (09:00)
[2022-11-01 09:59] VITALS: TEMP 97.7
[2022-11-01] MEDS: VANCOMYCIN 750 MG in DEXTROSE 5% 250 ML IV SCH ×2 (11:29→23:13)
[2022-11-01] MEDS: GAUZE TP SCH (13:00)
--- NOTE | 2022-11-01 13:00 | NUR ---
PATIENT STILL NPO , FOR CLEEING WOUND , DRESSING DONE , STILL UNDER OBSERVE .
--- NOTE | 2022-11-01 13:20 | NUR ---
11/01/22 RD FOLLOW UP COMPLETED PLEASE REFER TO NUTRITION ASSESSMENT UNDER CARE ACTIVITY FOR ESTIMATED NUTRITIONAL NEEDS. 1. CONTINUE NPO DIET TOLERATED. ONCE MEDICALLY APPROPRIATE ADVANCE BACK TO SOFT DIET. 2. ONCE MEDICALLY APPROPRIATE RD RECOMMENDS MARY BID FOR WOUNDS. THIS WILL PROVIDE 160 CALORIES AND 5 GRAMS OF PROTEIN. 3. RD RECOMMENDS CONTINUING WITH ENSURE BID WHICH WILL PROVIDE 700 CALORIES AND 40 GRAMS OF PROTEIN. 4. RD TO FOLLOW-UP 7 DAYS, LOW RISK MARIELY GIL RD
--- NOTE | 2022-11-01 13:32 | NUR ---
Pbx Wire Chief FLY SETTER introduced self to pt. who was agreeable to this interview. PT. resides alone. Pt. stated she does not have support, no way to get to doctors apts. or get her meds, Lexapro for Depression. pt. believes she will be going to a SNF.
--- NOTE | 2022-11-01 15:59 | NUR ---
PATIENT ON BED REST , A/OX4 , NPO FOR WOUND DEBRIDEMENT FOR BOTH LOWER EXTREMITY ON IV FLUID N/S 60CC/H , INCONTINENT , PATIENT WILL GO TODAY FOR DEBRIDEMENT SAID .
[2022-11-01 16:00] VITALS: BP 121/64; PULSE 69; RESP 18; TEMP 97.4; O2SAT 99
--- NOTE | 2022-11-01 19:15 | NUR ---
SHIFT REPORT GIVEN TO FLACO DUENAS, ALL HER QUESTION ANSWERED .
--- NOTE | 2022-11-01 19:30 | NUR ---
RECEIVED REPORT FROM DAY SHIFT NURSE ZAIN FOR CONTINUITY OF CARE. PATIENT IS A&O X4. PATIENT IS ON ROOM AIR, BREATHING IS NORMAL WITH SYMMETRICAL RISE AND FALL OF CHEST. IV IS 22G RFA, RUNNING NS 60. PATIENT IS LYING SEMI-FOWLERS IN BED. BED IS IN LOWEST POSITION, WHEELS LOCKED, CALL LIGHT IN PLACE. WILL CONTINUE TO OBSERVE PATIENT.
[2022-11-01 20:00] VITALS: BP 120/68; PULSE 74; RESP 17; TEMP 97.8; O2SAT 96
--- NOTE | 2022-11-01 22:00 | NUR ---
2100 MEDICATIONS WERE ADMINISTERED TO PATIENT SUCCESSFULLY WITHOUT ANY ISSUES WITH SWALLOWING OR IV. PATIENT IS LYING IN SEMI-FOWLERS POSITION. WILL CONTINUE TO OBSERVE PATIENT.
--- NOTE | 2022-11-02 | NUR ---
PATIENT COMPLAINED ABOUT BANDAGE BOTHERING HER LEFT LEG. LOOKED AT DRESSING; DRESSING WAS MOIST. DRESSING CHANGE WAS DONE WITH THE ASSISTANCE OF HENRIQUE CHAN. PATIENT TOLERATED CHANGE WELL. BREATHING IS NORMAL WITH SYMMETRICAL RISE AND FALL OF CHEST. WILL CONTINUE TO OBSERVE PATIENT.
[2022-11-02] MEDS: NACL 0.9% 1,000 ML IV SCH ×2 (01:30→17:21)
[2022-11-02 04:00] VITALS: BP 100/47; PULSE 68; RESP 16; TEMP 97.2; O2SAT 98
[2022-11-02] MEDS: HYDROmorphone 2 MG TAB PO PRN ×3 (04:21→23:49)
--- NOTE | 2022-11-02 05:30 | NUR ---
PATIENT ASKED FOR PAIN MEDICATION FOR LEG PAIN. ASSESSED PATIENT'S VITALS AND CHECKED CHART; DILAUDID WAS APPROPRIATE TO ADMINISTER. MEDICATION WAS ADMINISTERED SUCCESSFULLY WITHOUT ANY ISSUE WITH SWALLOWING. REASSESSED PATIENT AND PATIENT WAS SLEEPING; MEDICATION WAS EFFECTIVE. WILL CONTINUE TO OBSERVE PATIENT.
[2022-11-02 05:34] LABS: BASOPHILS # (AUTO) 0.1 K/uL (0.00-0.22); BASOPHILS % (AUTO) 1.1 % (0.0-2.0); EOSINOPHILS # (AUTO) 0.1 K/uL (0-0.4); EOSINOPHILS % (AUTO) 1.6 % (0.0-4.0); HEMATOCRIT 27.8 % (36-48); HEMOGLOBIN 9.1 g/dL (12.0-16.0); LYMPHOCYTES # (AUTO) 1.3 K/uL (2.5-16.5); LYMPHOCYTES % (AUTO) 27.7 % (20.5-51.1); MEAN CORPUSCULAR HEMOGLOBIN 24 pg (27-31); MEAN CORPUSCULAR HGB CONC 33 g/dL (33-37); MEAN CORPUSCULAR VOLUME 72.3 fL (80-94); MONOCYTES # (AUTO) 0.5 K/uL (0.8-1.0); MONOCYTES % (AUTO) 10.6 % (1.7-9.3); NEUTROPHILS # (AUTO) 2.8 K/uL (1.8-7.7); PLATELET COUNT (AUTO) 268 K/uL (140-450); RED BLOOD CELL COUNT(AUTO) 3.84 MIL/uL (4.20-5.40); RED CELL DISTRIBUTION WIDTH 17.4 % (11.6-13.7); WHITE BLOOD COUNT (AUTO) 4.8 K/uL (4.8-10.8)
[2022-11-02] MEDS: PIPERACILLIN/TAZOBACTAM 3.375 GM in DEXTROSE 5% 50 ML IV SCH ×2 (05:45→14:27)
[2022-11-02] MEDS: LEVOTHYROXINE 0.088 MG TAB PO SCH (05:48)
--- NOTE | 2022-11-02 07:09 | NUR ---
receive the patient from the will call clerk rn in rm 115 aox4 admitting diagnosis bilateral leg cellulitis . for antibiotic therapy and schedule for debribement today with Md Echeverria . will continue to monitor
--- NOTE | 2022-11-02 07:31 | NUR ---
ENDORSED TO DAY SHIFT NURSE OMAR FOR CONTINUITY OF CARE. PATIENT IS STABLE.
[2022-11-02 07:45] LABS: ALBUMIN 1.5 g/dL (3.4-5.0); ANION GAP 10.6 (8-16); CARBON DIOXIDE 30.5 mmol/L (21-32); CREATININE 0.8 mg/dL (0.6-1.3); POTASSIUM 4.1 mmol/L (3.5-5.1); TOTAL BILIRUBIN 0.3 mg/dL (0.0-1.0)
[2022-11-02 07:55] VITALS: TEMP 97.1
[2022-11-02 08:00] VITALS: BP 110/67; PULSE 63; PULSE 79; RESP 18; RESP 19; TEMP 98; O2SAT 97; O2SAT 99
[2022-11-02] MEDS: METHADONE HCL ORAL SOLN 10 MG/ML SOLN PO SCH (09:00)
[2022-11-02] MEDS: ESCITALOPRAM 20 MG TAB PO SCH (09:11)
[2022-11-02] MEDS: VANCOMYCIN PER PHARMACY MC SCH (09:11)
[2022-11-02] MEDS: PANTOPRAZOLE 40 MG TABEC PO SCH (09:11)
[2022-11-02] MEDS ORDERED: HYDROmorphone 1 MG/ML AMP IVP PRN (10:55)
[2022-11-02] MEDS: LACTATED RINGERS 1,000 ML IV SCH ×2 (10:55→19:15)
[2022-11-02] MEDS ORDERED: PROPOFOL 200 MG/20 ML VIAL IV ONE ×2 (11:02→11:15)
[2022-11-02] MEDS ORDERED: fentaNYL citrate 0.05 MG/ML VIAL ONE (11:03)
[2022-11-02] MEDS ORDERED: fentaNYL citrate 0.05 MG/ML - 50mL vial IV ONE (11:15)
[2022-11-02] MEDS ORDERED: SEVOFLURANE 250 ML BTL INH ONE (11:15)
[2022-11-02] MEDS ORDERED: ONDANSETRON 4 MG/2 ML VIAL ONE (11:15)
[2022-11-02] MEDS ORDERED: ePHEDrine 50 MG/ML VIAL ONE ×2 (11:15→11:33)
[2022-11-02] MEDS ORDERED: DEXAMETHASONE 10 MG/ML VIAL ONE (11:15)
[2022-11-02] MEDS ORDERED: LIDOCAINE/EPI MPF 1%1:200000 30 ML VIAL INJ ONE (11:16)
[2022-11-02] MEDS ORDERED: BUPIVACAINE-MPF 0.25% 30 ML VIAL INJ ONE (11:16)
[2022-11-02] MEDS ORDERED: KETOROLAC 30 MG/ML VIAL ONE (12:12)
[2022-11-02] MEDS ORDERED: KETOROLAC 30 MG/ML VIAL IVP ONE (12:20)
[2022-11-02] MEDS: GAUZE TP SCH (13:00)
--- NOTE | 2022-11-02 13:06 | NUR ---
patient came back from debribement of bilateral legs. tolerated the procedure , still on antibiotics , and pain mgt . will continue to monitor
[2022-11-02] MEDS: VANCOMYCIN 750 MG in DEXTROSE 5% 250 ML IV SCH (14:39)
[2022-11-02 16:00] VITALS: BP 125/74; PULSE 96; RESP 18; TEMP 98.7; O2SAT 93
--- NOTE | 2022-11-02 18:57 | NUR ---
will endorse to night auditor rn for continuity of care .status post debribement of bilateral legs with Md Echeverria
--- NOTE | 2022-11-02 19:30 | NUR ---
RECEIVED REPORT FROM DAY SHIFT NURSE OMAR FOR CONTINUITY OF CARE. PATIENT IS A&O X4. PATIENT IS ON ROOM AIR, BREATHING IS NORMAL WITH SYMMETRICAL RISE AND FALL OF CHEST. IV IS 22G RFA, RUNNING LR 120. PATIENT HAD DEBRIDEMENT TODAY ON BOTH LEGS. PATIENT IS LYING SEMI-FOWLERS IN BED. BED IS IN LOWEST POSITION, WHEELS LOCKED, CALL LIGHT IN PLACE. WILL CONTINUE TO OBSERVE PATIENT. Addendum: 11/03/22 at 0310 by Eulogio Thomas RN IV IS RUNNING NS 60.
[2022-11-02 20:00] VITALS: BP 118/58; PULSE 76; RESP 18; TEMP 97.5; O2SAT 98
--- NOTE | 2022-11-02 22:00 | NUR ---
2100 MEDICATION ADMINISTERED TO PATIENT SUCCESSFULLY WITHOUT ANY ISSUES WITH SWALLOWING. PATIENT IS LYING SEMI-FOWLERS IN BED. BREATHING IS NORMAL WITH SYMMETRICAL RISE AND FALL OF CHEST. WILL CONTINUE TO OBSERVE PATIENT.
--- NOTE | 2022-11-03 01:00 | NUR ---
PATIENT CALLED AND REQUESTED PAIN MEDICATION FOR BILATERAL LEG PAIN. CHECKED PATIENT'S VITALS AND CHART; DILAUDID WAS APPROPRIATE TO ADMINISTER. MEDICATION WAS ADMINISTERED SUCCESSFULLY WITHOUT ANY ISSUE WITH SWALLOWING. REASSESSED PATIENT ONE HOUR LATER; PATIENT WAS SLEEPING. BREATHING WAS NORMAL WITH SYMMETRICAL RISE AND FALL OF CHEST. WILL CONTINUE TO OBSERVE PATIENT.
[2022-11-03] MEDS: LACTATED RINGERS 1,000 ML IV SCH (03:35)
[2022-11-03 04:00] VITALS: BP 136/82; PULSE 67; RESP 18; TEMP 97.1; O2SAT 98
--- NOTE | 2022-11-03 04:45 | NUR ---
HENRIQUE TOBIN ASSISTED PATIENT WITH CHANGING HERSELF. PATIENT DOES NOT WANT ANY MALES ASSISTING HER WITH CHANGING. WAS INFORMED BY HENRIQUE TOBIN THAT PATIENT APPEARS TO HAVE UTERUS VISIBLE THROUGH VAGINA. PATIENT DOES HAVE HISTORY OF COLLAPSED UTERUS. PATIENT WOULD NOT ALLOW ME TO ASSESS AREA. WILL INFORM DAY SHIFT NURSE OF UTERUS PROTRUDING THROUGH VAGINAL CANAL.
[2022-11-03] MEDS: LEVOTHYROXINE 0.088 MG TAB PO SCH (05:52)
[2022-11-03 06:02] LABS: BASOPHILS % (AUTO) 0.4 % (0.0-2.0); EOSINOPHILS % (AUTO) 0.3 % (0.0-4.0); HEMATOCRIT 24.5 % (36-48); LYMPHOCYTES # (AUTO) 1.1 K/uL (2.5-16.5); LYMPHOCYTES % (AUTO) 21.8 % (20.5-51.1); MEAN CORPUSCULAR HEMOGLOBIN 24 pg (27-31); MEAN CORPUSCULAR HGB CONC 33 g/dL (33-37); MEAN CORPUSCULAR VOLUME 72.7 fL (80-94); MONOCYTES # (AUTO) 0.4 K/uL (0.8-1.0); MONOCYTES % (AUTO) 8.6 % (1.7-9.3); NEUTROPHILS # (AUTO) 3.4 K/uL (1.8-7.7); NEUTROPHILS % (AUTO) 68.9 % (42.2-75.2); PLATELET COUNT (AUTO) 243 K/uL (140-450); RED BLOOD CELL COUNT(AUTO) 3.37 MIL/uL (4.20-5.40); RED CELL DISTRIBUTION WIDTH 17.2 % (11.6-13.7)
[2022-11-03 06:48] LABS: ALBUMIN 1.6 g/dL (3.4-5.0); ANION GAP 11.1 (8-16); CARBON DIOXIDE 29.4 mmol/L (21-32); CREATININE 0.9 mg/dL (0.6-1.3); POTASSIUM 3.5 mmol/L (3.5-5.1); TOTAL BILIRUBIN 0.2 mg/dL (0.0-1.0)
--- NOTE | 2022-11-03 07:15 | NUR ---
RECEIVED REPORT FROM NIGHT NURSE JERMAN FOR CONTINUITY OF CARE. ALERT AND ORIENTED X 4. RESP. EVEN AND UNLABORED. ON ROOM AIR. IVF, INTACT, INFUSING WELL. NO C/O PAIN OR DISCOMFORT. CALL LIGHT KEPT WITHIN REACH. WILL CONTINUE TO MONITOR.
--- NOTE | 2022-11-03 07:39 | NUR ---
ENDORSED TO DAY SHIFT NURSE DEB FOR CONTINUITY OF CARE. PATIENT IS STABLE.
[2022-11-03 08:00] VITALS: PULSE 67; RESP 18; TEMP 98.3; O2SAT 98
[2022-11-03] MEDS: ESCITALOPRAM 20 MG TAB PO SCH (08:43)
--- NOTE | 2022-11-03 08:43 | NUR ---
SCHEDULED MEDICATIONS GIVEN. PT REFUSED PROTONIX, EXPLAINED RISK AND BENEFITS BUT STILL REFUSED. PT REQUESTED TO TAKE METHADONE @ 11:30AM AND STORED AT THE REFRIGERATOR. CALLED PHARMACY SPOKE TO ANGIE, MADE AWARE.
[2022-11-03] MEDS: METHADONE HCL ORAL SOLN 10 MG/ML SOLN PO SCH ×2 (08:44→09:05)
[2022-11-03] MEDS: PANTOPRAZOLE 40 MG TABEC PO SCH (08:55)
[2022-11-03] MEDS: VANCOMYCIN PER PHARMACY MC SCH (09:00)
[2022-11-03] MEDS ORDERED: VANCOMYCIN 1,000 MG in DEXTROSE 5% 250 ML IV SCH (09:00)
--- NOTE | 2022-11-03 09:05 | NUR ---
PT REQUESTED TO TAKE METHADONE NOW. ADMINISTERED MEDICATION. TOLERATED WELL.
[2022-11-03] MEDS: NACL 0.9% 1,000 ML IV SCH (10:39)
[2022-11-03] MEDS: HYDROmorphone 2 MG TAB PO PRN ×2 (11:46→20:23)
--- NOTE | 2022-11-03 11:46 | NUR ---
PRN DILAUDID WAS GIVEN FOR LT KNEE PAIN. TOLERATED WELL.
[2022-11-03] MEDS: GAUZE TP SCH (13:00)
--- NOTE | 2022-11-03 13:35 | NUR ---
WOUND DRESSING NOT GIVEN. PT S/P DEBRIDEMENT YESTERDAY 11/02/22. AWAITING FOR DR. CUTLER.
[2022-11-03 16:00] VITALS: BP 125/62; PULSE 72; RESP 20; TEMP 98.3; O2SAT 98
--- NOTE | 2022-11-03 17:56 | NUR ---
MADE FOLLOW UP WITH DR. CUTLER REGARDING 1ST DAY POST OP DRESSING CHANGE. AWAITING FOR RESPONSE.
--- NOTE | 2022-11-03 18:30 | NUR ---
PER DR. CUTLER CHANGE DRESSING, CLEANSE WITH NSS, PAT DRY APPLY ADAPTIVE DRESSING, WRAP WITH KERLIX AND SOBIA BANDAGE.
--- NOTE | 2022-11-03 18:35 | NUR ---
NOTIFIED PT FOR DRESSING CHANGE, PER PT PREFERS TO DO WOUND DRESSING BY HERSELF. EXPLAINED RISK AND BENEFITS. PT REQUESTED XEROFORM DRESSING 1ST, ADAPTIVE DRESSING WRAP WITH KERLIX AND SOBIA BANDAGE.
--- NOTE | 2022-11-03 19:40 | NUR ---
BEDSIDE REPORT GIVEN TO [employer]PER[employer] SPECIALIST FOR CONTINUITY OF CARE. ENDORSED TO LEATHA PT PREFERS TO DO HER OWN DRESSING CHANGE. REMAINS STABLE. CHARGE NURSE EVELIO MADE AWARE.
[2022-11-03 20:00] VITALS: BP 152/70; PULSE 76; RESP 18; TEMP 98.1; O2SAT 97
--- NOTE | 2022-11-03 20:00 | NUR ---
WOUND DRESSING CHANGED
--- NOTE | 2022-11-03 20:23 | NUR ---
PT COMPLAINTS OF SEVERE PAIN 10/10, DILAUDID ADMINISTERED.
--- NOTE | 2022-11-03 21:23 | NUR ---
PAIN IS DIMINISHED TO TOLERABLE LEVEL.
[2022-11-04] MEDS: NACL 0.9% 1,000 ML IV SCH (04:04)
[2022-11-04] MEDS: LEVOTHYROXINE 0.088 MG TAB PO SCH (06:27)
[2022-11-04] MEDS: HYDROmorphone 2 MG TAB PO PRN ×2 (06:30→18:45)
--- NOTE | 2022-11-04 06:30 | NUR ---
PT COMPLAINTS OF BILATERAL LEGS PAIN 9/10, DILAUDID PAIN MEDICATION ADMINISTERED.
[2022-11-04 06:34] LABS: BASOPHILS % (AUTO) 0.7 % (0.0-2.0); EOSINOPHILS % (AUTO) 0.6 % (0.0-4.0); HEMATOCRIT 25.6 % (36-48); HEMOGLOBIN 8.2 g/dL (12.0-16.0); LYMPHOCYTES # (AUTO) 1.2 K/uL (2.5-16.5); LYMPHOCYTES % (AUTO) 16.5 % (20.5-51.1); MEAN CORPUSCULAR HEMOGLOBIN 23 pg (27-31); MEAN CORPUSCULAR HGB CONC 32 g/dL (33-37); MEAN CORPUSCULAR VOLUME 72.7 fL (80-94); MONOCYTES # (AUTO) 0.5 K/uL (0.8-1.0); MONOCYTES % (AUTO) 7.4 % (1.7-9.3); NEUTROPHILS # (AUTO) 5.4 K/uL (1.8-7.7); NEUTROPHILS % (AUTO) 74.8 % (42.2-75.2); PLATELET COUNT (AUTO) 257 K/uL (140-450); RED BLOOD CELL COUNT(AUTO) 3.52 MIL/uL (4.20-5.40); RED CELL DISTRIBUTION WIDTH 17.4 % (11.6-13.7); WHITE BLOOD COUNT (AUTO) 7.2 K/uL (4.8-10.8)
[2022-11-04 06:46] LABS: ALBUMIN 1.8 g/dL (3.4-5.0); ANION GAP 8.7 (8-16); CARBON DIOXIDE 31.5 mmol/L (21-32); CREATININE 0.8 mg/dL (0.6-1.3); POTASSIUM 4.2 mmol/L (3.5-5.1); TOTAL BILIRUBIN 0.2 mg/dL (0.0-1.0)
--- NOTE | 2022-11-04 07:05 | NUR ---
RECEIVED REPORT FROM IN TUBE CONVERSION TECHNICIAN JERMAN FOR CONTINUITY OF CARE. ALERT AND ORIENTED X 4. SKIN DRY AND WARM TO TOUCH. ON ROOM AIR. IV SITE INTACT. IV INFUSING WELL. NO C/O PAIN OR DISCOMFORT. CALL LIGHT KEPT WITHIN REACH. WILL CONTINUE TO MONITOR.
--- NOTE | 2022-11-04 07:10 | NUR ---
PT IS ON STABLE CONDITION. BILATERAL LEGS DRESSINGS ARE CLEAN AND DRY. SAFETY MEASURES ARE IN PLACE. ENDORSED TO DAY SHIFT NURSE FOR REASSESSMENT OF PAIN MEDICATION, DILAUDID, ADMINISTERED AT 0630.
[2022-11-04 08:00] VITALS: BP 135/70; PULSE 65; RESP 19; TEMP 98.9; O2SAT 98
[2022-11-04] MEDS: PANTOPRAZOLE 40 MG TABEC PO SCH (09:00)
[2022-11-04] MEDS: METHADONE HCL ORAL SOLN 10 MG/ML SOLN PO SCH (09:43)
[2022-11-04] MEDS: ESCITALOPRAM 20 MG TAB PO SCH (09:45)
--- NOTE | 2022-11-04 09:45 | NUR ---
SCHEDULED MEDICATIONS GIVEN. TOLERATED WELL.
--- NOTE | 2022-11-04 10:41 | NUR ---
WOUND CARE NOTE: WOUND ASSESSMENT DONE WITH PRIMARY NURSE DEB AND A DROP PRESS HAND'S ASSISTANCE. WBLE WOUND PHOTO OBTAINED. BILATERAL LOWER LEGS WOUNDS S/P DEBRIDEMENT SURGICAL WOUNDS: RIGHT LEG [id number] (CIRCUMFERENCE AREA), WOUND BED MOIST, 100% RED TISSUE, MOIST, NO ODOR, WOUND EDGE ATTACHED, CHON WOUND SKIN ERYTHEMA, DRY AND INTACT. LEFT LEG [id number] (CIRCUMFERENCE AREA), WOUND BED MOIST, 100% RED TISSUE, MOIST, NO ODOR, WOUND EDGE ATTACHED, CHON WOUND SKIN ERYTHEMA, DRY AND INTACT. PAIN 5/10. POC DISCUSSED WITH PT. PT. VERBALIZES UNDERSTANDING. POC DISCUSSED WITH CHARGE NURSE AND CHEMISTRY QUALITY CONTROL ANALYST IF PT NOT GO[facility] SNF, RECOMMEND HOME HEALTH FOR WOUND CARE DAILY. RECOMMENDATIONS: -PRE-MEDICATED FOR PAIN BEFORE DRESSING CHANGE. -SOAK OLD DRESSING WITH NS BEFORE REMOVE OLD DRESSING. -RINSE BLE ANTERIOR AND POSTERIOR WOUNDS WITH NS, PAT DRY, APPLY XEROFORM DRESSING TO WOUND BED, COVER WITH DRY DRESSING, WRAP WITH KERLIX ROLL LOOSELY AND SECURED WITH TAPE DAILY AND PRN IF SOILING
[2022-11-04] MEDS ORDERED: PIPE1SOL IV (11:18)
[2022-11-04] MEDS ORDERED: DOCU-299 PO (11:18)
[2022-11-04] MEDS ORDERED: METH10SO PO (11:18)
[2022-11-04] MEDS ORDERED: NON ADHERENT DRESSING TP PRN (12:45)
[2022-11-04] MEDS ORDERED: MEROPENEM 1,000 MG in NACL 0.9% 50 ML IV SCH (13:00)
[2022-11-04] MEDS ORDERED: NON ADHERENT DRESSING TP SCH (13:00)
--- NOTE | 2022-11-04 13:41 | NUR ---
MERROPENEM IV GIVEN BY MITZI DUENAS. TOLERATED WELL.
--- NOTE | 2022-11-04 13:43 | NUR ---
SEEN BY DR. CUTLER.
[2022-11-04 16:00] VITALS: BP 124/67; PULSE 73; RESP 18; TEMP 98.1; O2SAT 98
--- NOTE | 2022-11-04 18:28 | NUR ---
CALLED [facility]. REPORT GIVEN TO EFREM.
--- NOTE | 2022-11-04 18:45 | NUR ---
PRN DILAUDID FOR BLE PAIN. TOLERATED WELL.
--- NOTE | 2022-11-04 19:00 | NUR ---
BEDSIDE REPORT GIVEN TO NIGHT NURSE JERMAN FOR CONTINUITY OF CARE. PT FOR DISCHARGED, AWAITING FOR TRANSPORTATION. DISCHARGED PAPERWORK DISCUSS AND SIGNED BY PT. OPEN WOUND TO BLE. PHOTOS TAKEN. DRESSING INTACT. PICC LINE TO JULI INTACT. ID BAND AND IV TO RFA REMOVED. REMAINS STABLE.
--- NOTE | 2022-11-04 19:15 | NUR ---
RECEIVED REPORT FROM DAY SHIFT NURSE DEB FOR CONTINUITY OF CARE. PATIENT IS A&O X4. PATIENT IS ON ROOM AIR, BREATHING IS NORMAL WITH SYMMETRICAL RISE AND FALL OF CHEST. IV IS 22G RFA, NO FLUIDS RUNNING. PATIENT IS PENDING ENTRY LEVEL ACCOUNTING CLERK FROM [employer] TO BE TRANSPORTED TO [facility].. PATIENT IS SITTING IN HIGH-FOWLERS POSITION IN BED AWAITING ENTRY LEVEL ACCOUNTING CLERK. DAY SHIFT NURSE HAD ALL PAPERWORK SIGNED AND PREPARED THE PATIENT FOR PICKUP; PATIENT'S BELONGINGS ARE IN BELONGINGS BAG AT BEDSIDE. BED IS IN LOWEST POSITION, WHEELS LOCKED, CALL LIGHT IN PLACE. WILL CONTINUE TO OBSERVE PATIENT.
--- NOTE | 2022-11-04 19:30 | NUR ---
PATIENT WAS PICKED UP BY LEE FROM [facility]. GAVE FOLDER WITH PATIENT'S INFO TO LEE TO BE GIVEN TO [facility] AND GAVE LEE REPORT ON PATIENT. PATIENT LEFT UNIT VIA [facility] AT 1923.
--- NOTE | 2022-11-04 19:45 | NUR ---
PAIN REASSESSMENT: PT DISCHARGE.
== END 2022-11-04 19:20 | DRG 570 ==
LOC: MED 17:07 → MTU 21:47
PROVIDERS: ADMIT Student in an Organized Health Care Education/Training Program; ATTEND Student in an Organized Health Care Education/Training Program
PROC: 0JBN0ZZ Excision of Right Lower Leg Subcutaneous Tissue and Fascia, Open Approach (ICD-10-PCS; 2022-11-02)
PROC: 0JBP0ZZ Excision of Left Lower Leg Subcutaneous Tissue and Fascia, Open Approach (ICD-10-PCS; principal; 2022-11-02 11:00)
PROC: 02HV33Z Insertion of Infusion Device into Superior Vena Cava, Percutaneous Approach (ICD-10-PCS; 2022-11-04)
DX: L03.116 Cellulitis of left lower limb (principal); E43 Unspecified severe protein-calorie malnutrition; N39.0 Urinary tract infection, site not specified; E87.1 Hypo-osmolality and hyponatremia; J98.11 Atelectasis; E87.20 Acidosis, unspecified; Z16.12 Extended spectrum beta lactamase (ESBL) resistance; L03.115 Cellulitis of right lower limb; D50.9 Iron deficiency anemia, unspecified; M41.85 Other forms of scoliosis, thoracolumbar region; B96.20 Unspecified Escherichia coli [E. coli] as the cause of diseases classified elsewhere; B95.2 Enterococcus as the cause of diseases classified elsewhere; B96.89 Other specified bacterial agents as the cause of diseases classified elsewhere; B96.5 Pseudomonas (aeruginosa) (mallei) (pseudomallei) as the cause of diseases classified elsewhere; E87.6 Hypokalemia; I87.2 Venous insufficiency (chronic) (peripheral); M99.07 Segmental and somatic dysfunction of upper extremity; Z80.3 Family history of malignant neoplasm of breast; Z87.891 Personal history of nicotine dependence; Z79.899 Other long term (current) drug therapy; Z85.068 Personal history of other malignant neoplasm of small intestine; Z68.21 Body mass index [BMI] 21.0-21.9, adult
CPT/HCPCS: 36415; 71045; 80053; 80202; 80305; 81001; 82550; 83605; 83880; 84484; 85025; 85610; 87040; 87070; 87081; 87086; 87186; 93005; 96365; 96366; 96368; 96372; 96375; 97110; 97112; 97163-GP; 97530; 99285; C9113; J1100; J1885; J2001; J2060; J2185; J2270; J2405; J2543; J2704; J3010; J3370; J3490; J7060; J7120

== ENCOUNTER 2022-11-30 13:52 | Emergency (ER) | payer OTHER ==
[~2022-11-30] VITALS: Ht 154.9 cm; Wt 63.5 kg
[~2022-11-30 13:52] MED LIST changes: -CEFEPIME IV; -DIPH25SG5 PO; +DOCU-299 PO; +ESCI5TAB PO; +HYDR2TAB6 PO; +METH10SO PO; -OMEP20EC11 PO; +PIPE1SOL IV; -QUET300T1 PO
[2022-11-30 14:05] VITALS: BP 120/75; PULSE 81; RESP 20; TEMP 98.5; O2SAT 96
[2022-11-30 14:30] VITALS: O2SAT 96
[2022-11-30 15:19] LABS: BASOPHILS % (AUTO) 0.7 % (0.0-2.0); EOSINOPHILS # (AUTO) 0.1 K/uL (0-0.4); EOSINOPHILS % (AUTO) 2.6 % (0.0-4.0); HEMATOCRIT 30.9 % (36-48); HEMOGLOBIN 10.2 g/dL (12.0-16.0); LYMPHOCYTES # (AUTO) 1.4 K/uL (2.5-16.5); LYMPHOCYTES % (AUTO) 28.9 % (20.5-51.1); MEAN CORPUSCULAR HEMOGLOBIN 25 pg (27-31); MEAN CORPUSCULAR HGB CONC 33 g/dL (33-37); MEAN CORPUSCULAR VOLUME 75.3 fL (80-94); MONOCYTES # (AUTO) 0.5 K/uL (0.8-1.0); MONOCYTES % (AUTO) 9.2 % (1.7-9.3); NEUTROPHILS # (AUTO) 2.9 K/uL (1.8-7.7); NEUTROPHILS % (AUTO) 58.6 % (42.2-75.2); PLATELET COUNT (AUTO) 179 K/uL (140-450); WHITE BLOOD COUNT (AUTO) 4.9 K/uL (4.8-10.8)
[2022-11-30 15:36] LABS: ALBUMIN 2.9 g/dL (3.4-5.0); ANION GAP 11.3 (8-16); CALCIUM 8.4 mg/dL (8.5-10.1); CARBON DIOXIDE 28.3 mmol/L (21-32); CREATININE 0.6 mg/dL (0.6-1.3); POTASSIUM 3.6 mmol/L (3.5-5.1); TOTAL BILIRUBIN 0.3 mg/dL (0.0-1.0); TOTAL PROTEIN, SERUM 6.5 g/dL (6.4-8.2)
[2022-11-30 15:37] LABS: LACTIC ACID 0.9 mmol/L (0.4-2.0)
[2022-11-30] MEDS ORDERED: CEPH-588 PO (16:35)
[2022-11-30] MEDS ORDERED: SULF-59 PO (16:35)
[2022-11-30] MEDS ORDERED: HYDROmorphone PFS 2 MG/ML SYR IM ONE (19:55)
[2022-11-30 22:27] VITALS: BP 118/71; PULSE 76; RESP 20; TEMP 98.5; O2SAT 99
== END 2022-11-30 19:30 | disposition home or self-care (01) ==
LOC: MED 13:52
DX: I87.8 Other specified disorders of veins (principal); L03.115 Cellulitis of right lower limb; L03.116 Cellulitis of left lower limb; Z79.899 Other long term (current) drug therapy
CPT/HCPCS: 36415; 80053; 83605; 85025; 87040; 96372; 99283; J1170

== ENCOUNTER 2023-01-10 13:21 | Emergency (ER) | payer OTHER ==
[~2023-01-10] VITALS: Ht 157.5 cm; Wt 63.5 kg
[~2023-01-10 13:21] MED LIST changes: +CEPH-588 PO; +SULF-59 PO
[2023-01-10 13:25] VITALS: BP 129/71; PULSE 107; RESP 20; TEMP 98.6; O2SAT 92
[2023-01-10 14:18] VITALS: O2SAT 92
[2023-01-10 14:19] LABS: APPEARANCE,URINE CLEAR (CLEAR); BILIRUBIN,URINE NEGATIVE (NEGATIVE); BLOOD, URINE NEGATIVE (NEGATIVE); COLOR,URINE YELLOW (YELLOW); LEUKOCYTE ESTERASE ,URINE NEGATIVE (NEGATIVE); NITRITE, URINE NEGATIVE (NEGATIVE); PROTEIN,URINE NEGATIVE (NEGATIVE); UGLUCOSE NEGATIVE (NEGATIVE); UROBILINOGEN,URINE 0.2 EU/dL (0.2 - 1)
[2023-01-10 14:37] LABS: BASOPHILS % (AUTO) 0.5 % (0.0-2.0); EOSINOPHILS # (AUTO) 0.1 K/uL (0-0.4); EOSINOPHILS % (AUTO) 2.2 % (0.0-4.0); HEMATOCRIT 34.9 % (36-48); HEMOGLOBIN 11.3 g/dL (12.0-16.0); LYMPHOCYTES % (AUTO) 19.7 % (20.5-51.1); MEAN CORPUSCULAR HEMOGLOBIN 25 pg (27-31); MEAN CORPUSCULAR HGB CONC 32 g/dL (33-37); MEAN CORPUSCULAR VOLUME 76.6 fL (80-94); MONOCYTES # (AUTO) 0.6 K/uL (0.8-1.0); MONOCYTES % (AUTO) 12.3 % (1.7-9.3); NEUTROPHILS # (AUTO) 3.4 K/uL (1.8-7.7); NEUTROPHILS % (AUTO) 65.3 % (42.2-75.2); PLATELET COUNT (AUTO) 204 K/uL (140-450); RED BLOOD CELL COUNT(AUTO) 4.56 MIL/uL (4.20-5.40); RED CELL DISTRIBUTION WIDTH 17.2 % (11.6-13.7); WHITE BLOOD COUNT (AUTO) 5.2 K/uL (4.8-10.8)
[2023-01-10 14:56] LABS: ALBUMIN 3.1 g/dL (3.4-5.0); ANION GAP 12.5 (8-16); CALCIUM 9.2 mg/dL (8.5-10.1); CARBON DIOXIDE 30.5 mmol/L (21-32); CREATININE 0.8 mg/dL (0.6-1.3); TOTAL BILIRUBIN 0.3 mg/dL (0.0-1.0); TOTAL PROTEIN, SERUM 7.1 g/dL (6.4-8.2)
[2023-01-10] MEDS ORDERED: AZIT250T4 PO ×2 (15:24→15:46)
[2023-01-10 16:09] VITALS: BP 129/71; PULSE 89; RESP 16; TEMP 98.6; O2SAT 98
== END 2023-01-10 16:16 | disposition home or self-care (01) ==
LOC: MED 13:21
DX: I10 Essential (primary) hypertension (principal); R07.89 Other chest pain; Z79.899 Other long term (current) drug therapy
CPT/HCPCS: 36415; 71045; 80053; 81003; 83880; 84484; 85025; 93005; 99285

== ENCOUNTER 2023-01-16 14:09 | Inpatient (IN) | payer OTHER ==
[~2023-01-16] VITALS: Ht 165.1 cm; Wt 56.7 kg
[~2023-01-16 14:09] MED LIST changes: +AZIT250T4 PO
[2023-01-16 15:00] VITALS: BP 141/83; PULSE 88; RESP 20; TEMP 98.6; O2SAT 97
[2023-01-16] MEDS ORDERED: MORPHINE SULFATE 4 MG/ML SYR IVP ONE (15:30)
[2023-01-16] MEDS ORDERED: cefTRIAXone 1,000 MG VIAL ONE (15:52)
[2023-01-16 16:47] LABS: BASOPHILS % (AUTO) 0.8 % (0.0-2.0); EOSINOPHILS # (AUTO) 0.1 K/uL (0-0.4); EOSINOPHILS % (AUTO) 2.6 % (0.0-4.0); HEMATOCRIT 35.8 % (36-48); HEMOGLOBIN 11.7 g/dL (12.0-16.0); LYMPHOCYTES # (AUTO) 1.3 K/uL (2.5-16.5); LYMPHOCYTES % (AUTO) 24.7 % (20.5-51.1); MEAN CORPUSCULAR HEMOGLOBIN 25 pg (27-31); MEAN CORPUSCULAR HGB CONC 33 g/dL (33-37); MEAN CORPUSCULAR VOLUME 76.2 fL (80-94); MONOCYTES # (AUTO) 0.5 K/uL (0.8-1.0); MONOCYTES % (AUTO) 9.6 % (1.7-9.3); NEUTROPHILS # (AUTO) 3.3 K/uL (1.8-7.7); NEUTROPHILS % (AUTO) 62.3 % (42.2-75.2); PLATELET COUNT (AUTO) 220 K/uL (140-450); WHITE BLOOD COUNT (AUTO) 5.3 K/uL (4.8-10.8)
[2023-01-16 16:56] LABS: ANION GAP 11.8 (8-16); CARBON DIOXIDE 29.7 mmol/L (21-32); CREATININE 0.7 mg/dL (0.6-1.3); POTASSIUM 4.5 mmol/L (3.5-5.1); TOTAL BILIRUBIN 0.1 mg/dL (0.0-1.0); TOTAL PROTEIN, SERUM 7.1 g/dL (6.4-8.2)
[2023-01-16 17:31] VITALS: O2SAT 97
[2023-01-16 17:47] VITALS: BP 159/92; PULSE 9; RESP 20; TEMP 98.6
[2023-01-16] MEDS ORDERED: PIPERACILLIN/TAZOBACTAM 3.375 GM in DEXTROSE 5% 50 ML IV SCH (21:00)
[2023-01-17] MEDS ORDERED: LEVOTHYROXINE 0.088 MG TAB PO SCH (06:30)
[2023-01-17] MEDS ORDERED: ESCITALOPRAM 20 MG TAB PO SCH (09:00)
== END 2023-01-16 17:30 | disposition left against medical advice (07) | DRG 593 ==
LOC: MED 14:09 → MTU 17:01
PROVIDERS: ADMIT Family Medicine; ATTEND Family Medicine
DX: L97.929 Non-pressure chronic ulcer of unspecified part of left lower leg with unspecified severity (principal); E44.1 Mild protein-calorie malnutrition; L97.919 Non-pressure chronic ulcer of unspecified part of right lower leg with unspecified severity; Z68.20 Body mass index [BMI] 20.0-20.9, adult
CPT/HCPCS: 36415; 80053; 83880; 84484; 85025; 87040; 93005; 96374; 96375; 99285; J0696; J2270; J2543; J7060

== ENCOUNTER 2023-01-30 17:00 | Inpatient (IN) | payer OTHER ==
[~2023-01-30] VITALS: Ht 165.1 cm; Wt 63.5 kg
[2023-01-30 17:15] VITALS: BP 151/70; PULSE 91; RESP 18; TEMP 98.3; O2SAT 96
[2023-01-30 19:28] LABS: BASOPHILS % (AUTO) 0.6 % (0.0-2.0); EOSINOPHILS # (AUTO) 0.2 K/uL (0-0.4); EOSINOPHILS % (AUTO) 2.5 % (0.0-4.0); HEMOGLOBIN 11.4 g/dL (12.0-16.0); LYMPHOCYTES # (AUTO) 1.6 K/uL (2.5-16.5); LYMPHOCYTES % (AUTO) 25.1 % (20.5-51.1); MEAN CORPUSCULAR HEMOGLOBIN 25 pg (27-31); MEAN CORPUSCULAR HGB CONC 34 g/dL (33-37); MEAN CORPUSCULAR VOLUME 75.1 fL (80-94); MONOCYTES # (AUTO) 0.7 K/uL (0.8-1.0); MONOCYTES % (AUTO) 10.1 % (1.7-9.3); NEUTROPHILS # (AUTO) 4.1 K/uL (1.8-7.7); NEUTROPHILS % (AUTO) 61.7 % (42.2-75.2); PLATELET COUNT (AUTO) 323 K/uL (140-450); RED BLOOD CELL COUNT(AUTO) 4.53 MIL/uL (4.20-5.40); RED CELL DISTRIBUTION WIDTH 14.6 % (11.6-13.7); WHITE BLOOD COUNT (AUTO) 6.6 K/uL (4.8-10.8)
[2023-01-30 19:42] LABS: ALBUMIN 2.9 g/dL (3.4-5.0); ANION GAP 12.4 (8-16); CALCIUM 8.7 mg/dL (8.5-10.1); CARBON DIOXIDE 30.1 mmol/L (21-32); CREATININE 0.8 mg/dL (0.6-1.3); POTASSIUM 3.5 mmol/L (3.5-5.1); TOTAL BILIRUBIN 0.2 mg/dL (0.0-1.0); TOTAL PROTEIN, SERUM 7.3 g/dL (6.4-8.2)
[2023-01-30 19:49] LABS: LACTIC ACID 1.9 mmol/L (0.4-2.0)
[2023-01-30] MEDS ORDERED: HYDROmorphone PFS 2 MG/ML SYR IVP ONE (20:10)
[2023-01-30 20:50] LABS: APPEARANCE,URINE CLEAR (CLEAR); BILIRUBIN,URINE NEGATIVE (NEGATIVE); BLOOD, URINE NEGATIVE (NEGATIVE); COLOR,URINE YELLOW (YELLOW); LEUKOCYTE ESTERASE ,URINE NEGATIVE (NEGATIVE); NITRITE, URINE NEGATIVE (NEGATIVE); PROTEIN,URINE NEGATIVE (NEGATIVE); UGLUCOSE NEGATIVE (NEGATIVE); UROBILINOGEN,URINE 0.2 EU/dL (0.2 - 1)
[2023-01-30] MEDS ORDERED: VANCOMYCIN 1,000 MG in DEXTROSE 5% 250 ML IV ONE (21:30)
[2023-01-30] MEDS ORDERED: VANCOMYCIN 1,000 MG VIAL ONE (21:35)
[2023-01-30] MEDS ORDERED: IBUPROFEN 400 MG TAB PO ONE (21:40)
[2023-01-30] MEDS ORDERED: DOCUSATE SODIUM 100 MG GELCAP PO PRN (22:05)
[2023-01-30] MEDS ORDERED: ONDANSETRON 4 MG/2 ML VIAL IM/IVP PRN (22:05)
[2023-01-30] MEDS ORDERED: ACETAMINOPHEN 325 MG TAB PO PRN (22:05)
[2023-01-30] MEDS ORDERED: ZOLPIDEM 5 MG TAB PO PRN (22:05)
[2023-01-30] MEDS ORDERED: guaiFENesin DM 200/20 MG-10 ML 10 ML UDC PO PRN (22:05)
[2023-01-30 23:20] VITALS: BP 149/66; PULSE 82; RESP 20; TEMP 97; O2SAT 97
[2023-01-30 23:31] VITALS: PULSE 82; RESP 20; O2SAT 97
[2023-01-31] VITALS (7 sets, daily range): BP systolic 96–134; BP diastolic 53–83; PULSE 72–88; RESP 18–20; TEMP 97–98.5; O2SAT 87–98
[2023-01-31] MEDS: NACL 0.9% 1,000 ML IV SCH ×3 (00:25→20:14)
[2023-01-31] MEDS: HYDROcodone/APAP 7.5/325 MG 1 TAB PO PRN ×3 (02:40→19:02)
[2023-01-31 07:39] LABS: BASOPHILS % (AUTO) 0.4 % (0.0-2.0); EOSINOPHILS # (AUTO) 0.1 K/uL (0-0.4); HEMATOCRIT 33.2 % (36-48); HEMOGLOBIN 11.1 g/dL (12.0-16.0); LYMPHOCYTES # (AUTO) 0.8 K/uL (2.5-16.5); LYMPHOCYTES % (AUTO) 9.3 % (20.5-51.1); MEAN CORPUSCULAR HEMOGLOBIN 25 pg (27-31); MEAN CORPUSCULAR HGB CONC 33 g/dL (33-37); MEAN CORPUSCULAR VOLUME 74.6 fL (80-94); MONOCYTES # (AUTO) 0.6 K/uL (0.8-1.0); MONOCYTES % (AUTO) 6.7 % (1.7-9.3); NEUTROPHILS # (AUTO) 6.8 K/uL (1.8-7.7); NEUTROPHILS % (AUTO) 82.6 % (42.2-75.2); PLATELET COUNT (AUTO) 272 K/uL (140-450); RED BLOOD CELL COUNT(AUTO) 4.45 MIL/uL (4.20-5.40); WHITE BLOOD COUNT (AUTO) 8.2 K/uL (4.8-10.8)
[2023-01-31 08:04] LABS: ALBUMIN 2.6 g/dL (3.4-5.0); ANION GAP 10.7 (8-16); CALCIUM 8.2 mg/dL (8.5-10.1); CARBON DIOXIDE 28.7 mmol/L (21-32); CREATININE 0.7 mg/dL (0.6-1.3); POTASSIUM 3.4 mmol/L (3.5-5.1); TOTAL BILIRUBIN 0.3 mg/dL (0.0-1.0); TOTAL PROTEIN, SERUM 6.4 g/dL (6.4-8.2)
[2023-01-31] MEDS: PANTOPRAZOLE 40 MG TABEC PO SCH (09:36)
[2023-01-31] MEDS ORDERED: METHADONE 10 MG TAB PO SCH (11:10)
[2023-01-31] MEDS ORDERED: NON ADHERENT DRESSING TP PRN (11:15)
[2023-01-31] MEDS: PIPERACILLIN/TAZOBACTAM 3.375 GM in DEXTROSE 5% 50 ML IV SCH ×2 (12:59→18:38)
[2023-01-31] MEDS: NON ADHERENT DRESSING TP SCH (13:00)
[2023-01-31] MEDS: METHADONE HCL ORAL SOLN 10 MG/ML SOLN PO SCH (13:03)
[2023-01-31] MEDS: POTASSIUM CHLORIDE 10 MEQ TABER PO PRN (19:00)
[2023-02-01] MEDS: HYDROmorphone 2 MG TAB PO PRN ×2 (04:56→14:30)
[2023-02-01] MEDS: NACL 0.9% 1,000 ML IV SCH ×3 (04:56→22:20)
[2023-02-01] MEDS: PIPERACILLIN/TAZOBACTAM 3.375 GM in DEXTROSE 5% 50 ML IV SCH ×6 (06:00→23:15)
[2023-02-01 07:05] LABS: BASOPHILS % (AUTO) 0.5 % (0.0-2.0); EOSINOPHILS # (AUTO) 0.2 K/uL (0-0.4); EOSINOPHILS % (AUTO) 2.9 % (0.0-4.0); HEMATOCRIT 29.2 % (36-48); HEMOGLOBIN 9.8 g/dL (12.0-16.0); LYMPHOCYTES # (AUTO) 1.1 K/uL (2.5-16.5); LYMPHOCYTES % (AUTO) 20.6 % (20.5-51.1); MEAN CORPUSCULAR HEMOGLOBIN 25 pg (27-31); MEAN CORPUSCULAR HGB CONC 34 g/dL (33-37); MEAN CORPUSCULAR VOLUME 75.3 fL (80-94); MONOCYTES # (AUTO) 0.6 K/uL (0.8-1.0); MONOCYTES % (AUTO) 11.7 % (1.7-9.3); NEUTROPHILS # (AUTO) 3.5 K/uL (1.8-7.7); NEUTROPHILS % (AUTO) 64.3 % (42.2-75.2); PLATELET COUNT (AUTO) 209 K/uL (140-450); RED BLOOD CELL COUNT(AUTO) 3.87 MIL/uL (4.20-5.40); RED CELL DISTRIBUTION WIDTH 14.7 % (11.6-13.7); WHITE BLOOD COUNT (AUTO) 5.5 K/uL (4.8-10.8)
[2023-02-01 07:22] LABS: ALBUMIN 2.2 g/dL (3.4-5.0); ANION GAP 10.9 (8-16); CALCIUM 8.1 mg/dL (8.5-10.1); CARBON DIOXIDE 28.4 mmol/L (21-32); CREATININE 0.8 mg/dL (0.6-1.3); POTASSIUM 3.3 mmol/L (3.5-5.1); TOTAL BILIRUBIN 0.1 mg/dL (0.0-1.0); TOTAL PROTEIN, SERUM 5.9 g/dL (6.4-8.2)
[2023-02-01 07:44] VITALS: TEMP 98.2
[2023-02-01 08:04] VITALS: BP 106/64; PULSE 69; RESP 18; TEMP 97.8; O2SAT 100
[2023-02-01] MEDS: PANTOPRAZOLE 40 MG TABEC PO SCH (08:23)
[2023-02-01] MEDS: METHADONE HCL ORAL SOLN 10 MG/ML SOLN PO SCH (08:24)
[2023-02-01] MEDS: POTASSIUM CHLORIDE 10 MEQ TABER PO PRN (08:27)
[2023-02-01] MEDS ORDERED: METHADONE PO SCH (09:00)
[2023-02-01] MEDS: NON ADHERENT DRESSING TP SCH (11:28)
[2023-02-01 16:08] VITALS: BP 135/61; PULSE 76; RESP 18; TEMP 97.1; O2SAT 99
[2023-02-01 20:00] VITALS: PULSE 74; RESP 17; TEMP 97.3; O2SAT 99
[2023-02-02] VITALS: BP 121/81; PULSE 74; RESP 17; TEMP 97.1; O2SAT 99
[2023-02-02] MEDS: HYDROmorphone 2 MG TAB PO PRN (00:15)
[2023-02-02] MEDS: PIPERACILLIN/TAZOBACTAM 3.375 GM in DEXTROSE 5% 50 ML IV SCH ×3 (05:08→17:29)
[2023-02-02 08:00] VITALS: BP 120/82; PULSE 75; RESP 20; TEMP 97.5; O2SAT 94; O2SAT 99
[2023-02-02] MEDS: PANTOPRAZOLE 40 MG TABEC PO SCH (08:59)
[2023-02-02] MEDS: METHADONE HCL ORAL SOLN 10 MG/ML SOLN PO SCH (09:01)
[2023-02-02] MEDS: NACL 0.9% 1,000 ML IV SCH ×2 (11:56→15:44)
[2023-02-02] MEDS: NON ADHERENT DRESSING TP SCH (13:45)
[2023-02-02 16:00] VITALS: BP 141/84; PULSE 82; RESP 18; TEMP 98.1; O2SAT 96
[2023-02-02 20:00] VITALS: PULSE 76; RESP 18; TEMP 97.4; O2SAT 94
[2023-02-03] VITALS: BP 130/69; PULSE 76; RESP 18; TEMP 97.4; O2SAT 94
[2023-02-03] MEDS: PIPERACILLIN/TAZOBACTAM 3.375 GM in DEXTROSE 5% 50 ML IV SCH ×3 (00:25→14:17)
[2023-02-03] MEDS: NACL 0.9% 1,000 ML IV SCH (00:26)
[2023-02-03] MEDS: HYDROmorphone 2 MG TAB PO PRN ×2 (04:47→14:17)
[2023-02-03] MEDS: POTASSIUM CHLORIDE 10 MEQ TABER PO PRN (06:50)
[2023-02-03 06:58] LABS: BASOPHILS % (AUTO) 0.9 % (0.0-2.0); EOSINOPHILS # (AUTO) 0.2 K/uL (0-0.4); EOSINOPHILS % (AUTO) 4.4 % (0.0-4.0); HEMATOCRIT 31.6 % (36-48); HEMOGLOBIN 10.6 g/dL (12.0-16.0); LYMPHOCYTES # (AUTO) 1.3 K/uL (2.5-16.5); LYMPHOCYTES % (AUTO) 29.1 % (20.5-51.1); MEAN CORPUSCULAR HEMOGLOBIN 25 pg (27-31); MEAN CORPUSCULAR HGB CONC 33 g/dL (33-37); MEAN CORPUSCULAR VOLUME 75.6 fL (80-94); MONOCYTES # (AUTO) 0.4 K/uL (0.8-1.0); NEUTROPHILS # (AUTO) 2.6 K/uL (1.8-7.7); NEUTROPHILS % (AUTO) 56.6 % (42.2-75.2); PLATELET COUNT (AUTO) 238 K/uL (140-450); RED BLOOD CELL COUNT(AUTO) 4.18 MIL/uL (4.20-5.40); RED CELL DISTRIBUTION WIDTH 14.4 % (11.6-13.7); WHITE BLOOD COUNT (AUTO) 4.5 K/uL (4.8-10.8)
[2023-02-03 07:26] LABS: ALBUMIN 2.4 g/dL (3.4-5.0); ANION GAP 12.9 (8-16); CALCIUM 8.4 mg/dL (8.5-10.1); CARBON DIOXIDE 26.7 mmol/L (21-32); CREATININE 0.7 mg/dL (0.6-1.3); POTASSIUM 4.6 mmol/L (3.5-5.1); TOTAL BILIRUBIN 0.1 mg/dL (0.0-1.0); TOTAL PROTEIN, SERUM 6.1 g/dL (6.4-8.2)
[2023-02-03 08:00] VITALS: BP 148/74; PULSE 78; RESP 18; RESP 20; TEMP 97.9; O2SAT 93; O2SAT 94
[2023-02-03] MEDS: PANTOPRAZOLE 40 MG TABEC PO SCH (09:22)
[2023-02-03] MEDS: METHADONE HCL ORAL SOLN 10 MG/ML SOLN PO SCH (09:23)
[2023-02-03] MEDS ORDERED: CALCIUM CARBONATE 500 MG TAB.CHEW PO PRN (12:50)
[2023-02-03] MEDS: NON ADHERENT DRESSING TP SCH (13:00)
[2023-02-03] MEDS ORDERED: CLINICAL MONITORING MC PRN (15:40)
[2023-02-03 16:00] VITALS: BP 136/54; PULSE 79; RESP 18; TEMP 96.9; O2SAT 94
[2023-02-03 20:00] VITALS: BP 144/68; PULSE 72; PULSE 87; RESP 18; RESP 19; TEMP 97.6; O2SAT 96
[2023-02-03] MEDS: MEROPENEM 1,000 MG in NACL 0.9% 50 ML IV SCH (21:18)
[2023-02-04] MEDS: HYDROmorphone 2 MG TAB PO PRN (02:20)
[2023-02-04 04:00] VITALS: BP 143/57; PULSE 75; RESP 18; TEMP 97.4; O2SAT 96
[2023-02-04] MEDS: HYDROcodone/APAP 7.5/325 MG 1 TAB PO PRN (06:28)
[2023-02-04 07:00] LABS: BASOPHILS % (AUTO) 0.4 % (0.0-2.0); EOSINOPHILS # (AUTO) 0.1 K/uL (0-0.4); EOSINOPHILS % (AUTO) 2.8 % (0.0-4.0); HEMOGLOBIN 10.4 g/dL (12.0-16.0); LYMPHOCYTES # (AUTO) 1.2 K/uL (2.5-16.5); LYMPHOCYTES % (AUTO) 24.2 % (20.5-51.1); MEAN CORPUSCULAR HEMOGLOBIN 25 pg (27-31); MEAN CORPUSCULAR HGB CONC 34 g/dL (33-37); MEAN CORPUSCULAR VOLUME 74.5 fL (80-94); MONOCYTES # (AUTO) 0.5 K/uL (0.8-1.0); NEUTROPHILS # (AUTO) 3.2 K/uL (1.8-7.7); NEUTROPHILS % (AUTO) 62.6 % (42.2-75.2); PLATELET COUNT (AUTO) 208 K/uL (140-450); RED BLOOD CELL COUNT(AUTO) 4.16 MIL/uL (4.20-5.40); RED CELL DISTRIBUTION WIDTH 14.5 % (11.6-13.7)
[2023-02-04 07:08] LABS: ANION GAP 10.6 (8-16); CALCIUM 8.7 mg/dL (8.5-10.1); CARBON DIOXIDE 29.4 mmol/L (21-32); CREATININE 0.7 mg/dL (0.6-1.3)
[2023-02-04 08:00] VITALS: PULSE 74; RESP 19; TEMP 98; O2SAT 96
[2023-02-04] MEDS: PANTOPRAZOLE 40 MG TABEC PO SCH (09:00)
[2023-02-04] MEDS: MEROPENEM 1,000 MG in NACL 0.9% 50 ML IV SCH (09:00)
[2023-02-04] MEDS: METHADONE HCL ORAL SOLN 10 MG/ML SOLN PO SCH (09:38)
[2023-02-04] MEDS ORDERED: ERTA1VIA2 IJ (12:08)
[2023-02-04] MEDS ORDERED: ACET-5636 PO (12:08)
[2023-02-04 12:28] VITALS: BP 143/57; PULSE 74; RESP 19; TEMP 98
[2023-02-04] MEDS: NON ADHERENT DRESSING TP SCH (13:00)
== END 2023-02-04 20:00 | DRG 602 ==
LOC: MED 17:00 → MTU 22:03
PROVIDERS: ADMIT Student in an Organized Health Care Education/Training Program; ATTEND Student in an Organized Health Care Education/Training Program
PROC: 05HY33Z Insertion of Infusion Device into Upper Vein, Percutaneous Approach (ICD-10-PCS; principal; 2023-02-02)
PROC: B54MZZA Ultrasonography of Right Upper Extremity Veins, Guidance (ICD-10-PCS; 2023-02-02)
DX: L03.116 Cellulitis of left lower limb (principal); E43 Unspecified severe protein-calorie malnutrition; Z59.00 Homelessness unspecified; L97.929 Non-pressure chronic ulcer of unspecified part of left lower leg with unspecified severity; L97.919 Non-pressure chronic ulcer of unspecified part of right lower leg with unspecified severity; L03.115 Cellulitis of right lower limb; D64.9 Anemia, unspecified; E87.6 Hypokalemia; E86.0 Dehydration; G89.4 Chronic pain syndrome; F17.210 Nicotine dependence, cigarettes, uncomplicated; M17.11 Unilateral primary osteoarthritis, right knee; Z91.148 Patient's other noncompliance with medication regimen for other reason; Z79.899 Other long term (current) drug therapy; Z68.23 Body mass index [BMI] 23.0-23.9, adult
CPT/HCPCS: 36415; 71045; 73590; 80048; 80053; 81003; 83605; 83880; 84484; 85025; 87040; 87070; 87075; 87081; 87086; 87186; 93005; 96365; 96375; 97116; 97530; 99285; J1170; J1644; J2185; J2543; J3370; J7060